=== PATIENT | male | born 1925 | race Caucasian/White ===

== ENCOUNTER 2016-06-14 17:23 | Inpatient (IN) | payer OTHER ==
[2016-06-14] MEDS ORDERED: IPRATROPIUM/ALBUTEROL 3 ML DEYVIAL IH ONE (17:39)
--- NOTE | 2016-06-14 17:39 | EDPHY ---
H & P HPI/ROS: CHIEF COMPLAINT: Altered mental status Limitations: Unable to obtain any history from the patient; the history is through the paramedics and the patient's son HISTORY OF PRESENT ILLNESS: 89-year-old male with a history of hypertension and chronic respiratory failure presents with altered mental status. Onset of low-grade fever few days ago. Today he was more confused than usual at his prison and he was requiring more oxygen than usual. Unable to ambulate. Per the patient's son, he frequently has pneumonia and this is typical of his prior episodes of pneumonia. The patient denies any complaints; no pain, shortness of breath or cough. REVIEW OF SYSTEMS: Unable to determine Past Medical/Surgical History: Hypertension Congestive heart failure Chronic respiratory failure, on home oxygen Chronic renal failure Social History: Lives at [facility] Smoking Status: Unknown if ever smoked Physical Exam: General Appearance: Drowsy, opens eyes to voice Eyes: Pupils equal and round, no conjunctival pallor or injection ENT, Mouth: Mucous membranes dry Neck: Normal inspection Respiratory: diffuse rhonchi and wheezing Cardiovascular: Regular rate and rhythm Gastrointestinal: Abdomen is soft, no apparent tenderness Neurological: drowsy, moves all extremities, answers questions Skin: Warm and dry Extremities: normal inspection Psychiatric: flat affect Constitutional: Initial Vital Signs Temperature (C) 37 C 06/14/16 17:25 Heart Rate 82 06/14/16 17:25 Respiratory Rate 20 06/14/16 17:25 Blood Pressure 138/73 H 06/14/16 17:25 O2 Sat (%) 88 L 06/14/16 17:25 O2 Delivery Mode Oxymizer O2 (L/minute) 10 Allergies/Adverse Reactions: No Known Allergies Allergy (Unverified 07/10/14 08:12) Home Medications: Medication Instructions Recorded oxyCODONE IR [Oxycodone Ir (*)] 5 mg PO Q6HRS PRN 07/10/14 Acetaminophen [Tylenol 325mg (*)] 325 - 650 mg PO Q6 PRN #0 tab 07/19/14 Calcium Carbonate [Tums 500MG (*)] 500 mg PO QID PRN 01/20/15 Folic Acid [Folic Acid 1 MG (*)] 800 mcg PO DAILY 01/20/15 Polyethylene Glycol 3350 [Miralax 17 gm PO DAILY 01/20/15 17 gm (*)] Sennosides/Docusate Sodium 1 each PO BID PRN 01/20/15 [Senokot-S] Acetaminophen [Tylenol Supp 325mg 650 mg AK Q6HRS PRN 06/14/16 (*)] Clobetasol 0.05% [Temovate Cream] 1 harshal TP MWF PRN 06/14/16 Furosemide [Lasix 20 MG (*)] 20 mg PO DAILY 06/14/16 Herbals/Supplements -Info Only 1 ea PO DAILY 06/14/16 Losartan Potassium [Cozaar 50 mg 50 mg PO DAILY 06/14/16 (*)] Methyl Salicylate/Menthol [Bengay 1 harshal TP Q6HRS PRN 06/14/16 (*)] Ondansetron Odt [Zofran Odt 4 mg 8 mg PO Q8HRS PRN 06/14/16 (*)] Tamsulosin HCl [Flomax 0.4 MG (*)] 0.4 mg PO DAILY 06/14/16 amLODIPine BESYLATE [Norvasc 5 mg 5 mg PO DAILY 06/14/16 (*)] guaiFENesin [Mucinex 600 MG (*)] 600 mg PO BID 06/14/16 Medical Decision Making - Diagnostics EKG Interpretation: EKG interpreted by me reveals NSR, QRS interval 0.10, LAFB. Imaging: Chest x-ray independently reviewed by me reveals left lower lobe infiltrate, poor inspiration. Procedures: Procedure: Central line placement. Indication: poor vascular access, hyperkalemia. Risks, benefits, alternatives discussed with the patient including but not limited to bleeding, infection, vascular injury, and collapsed lung and consent obtained. A timeout was observed. Full maximal sterile barrier technique was used. The area was anesthetized with 1% lidocaine. A 7 Icelandic triple lumen was placed in the right internal jugular vein using standard Seldinger technique. There were no complications. Blood return low pressure, dark blood. Patient tolerated procedure well. CXR results: Appropriate line placement, and no pneumothorax. X-ray was interpreted by myself. Radiologist interpretation is pending. The procedure was performed by myself. ED Course/Re-evaluation: This patient presents with altered mental status and a history of fever. On arrival, he is hypoxic, but other vital signs are normal. History is extremely limited; pt's son briefly in ED, stated that pt has h/o pneumonia. Pt does not meet SIRS criteria. He has a very difficult IV access and multiple attempts were made. Ultimately I used ultrasound guidance to place a left upper extremity 18ga IV. A DuoNeb was given because of wheezing and rhonchi. Chest x -ray revealed a left lower lobe infiltrate. Initial serum lactate is 1.2. Blood cultures were drawn and Levaquin 750 mg IV given for pneumonia. Initial potassium is 6.8, though I suspect that this is hemolyzed, given difficult blood draw initially. A repeat potassium has been ordered. The patient was given standard treatment for hyperkalemia. After this, he pulled out 1 of his 2 peripheral IVs. Given the difficult IV access and repeated loss of peripheral IVs, I decided to place a right internal jugular central line. Patient tolerated the procedure well. Repeat potassium 6.7; pt given standard treatment for hyperkalemia, including calcium, IVF/Lasix, glucose/insulin, bicarb, kayexalate. EKG without changes of acute hyperkalemia. The hospitalist service was consulted for admission and consulted Nephrology. This patient utilized 40 minutes of critical care time exclusive of unbundled procedures. Differential Diagnosis: Altered mental status including but not limited to hypoglycemia, infectious process, electrolyte abnormality, head injury and intoxicants. - Data Points Laboratory Results: Laboratory Results 06/14/16 18:46 06/14/16 18:46 Microbiology Results: MICROBIOLOGY 06/14/16 18:46 Blood Blood Culture - Preliminary 06/14/16 18:21 Sputum, Expectorated - Final 06/14/16 18:21 Sputum, Expectorated Sputum Culture - Preliminary Medications Given: Discontinued Medications Albuterol (Proventil Neb) 3 ml IH ONCE ONE Stop: 06/14/16 20:07 Last Admin: 06/14/16 20:17 Dose: 3 ml Albuterol/Ipratropium (Duoneb) 3 ml IH EDNOW ONE Stop: 06/14/16 17:40 Last Admin: 06/14/16 17:55 Dose: 3 ml Albuterol/Ipratropium (Duoneb) 3 ml IH Q4H ELSA Stop: 12/11/16 20:29 Last Admin: 06/15/16 09:00 Dose: Not Given Calcium Gluconate (Calcium Gluconate) 1 gm IVP EDNOW ONE Stop: 06/14/16 21:29 Last Admin: 06/14/16 22:33 Dose: 1 gm Dextrose (Dextrose 50% Syringe) 25 gm IVP EDNOW ONE Stop: 06/14/16 21:29 Last Admin: 06/14/16 23:21 Dose: 25 gm Dextrose (Dextrose 50% Syringe) 25 gm IVP ONCE ONE Stop: 06/15/16 05:00 Last Admin: 06/15/16 05:07 Dose: 25 gm Furosemide (Lasix Injection) 20 mg IVP EDNOW ONE Stop: 06/15/16 21:29 Last Admin: 06/15/16 17:33 Dose: Not Given Furosemide (Lasix Injection) 20 mg IVP ONCE ONE Stop: 06/15/16 04:59 Last Admin: 06/15/16 05:07 Dose: 20 mg Levofloxacin/Dextrose (Levaquin 750 Mg (Premix)) 150 mls @ 100 mls/hr IV EDNOW ONE PRN Reason: Protocol Stop: 06/14/16 19:32 Last Admin: 06/14/16 20:50 Dose: 150 mls Sodium Chloride (Ns) 1,000 mls @ 0 mls/hr IV ONCE ONE PRN Reason: Wide Open Stop: 06/14/16 18:52 Last Admin: 06/14/16 18:51 Dose: 1,000 mls Dextrose/Sodium Chloride (D5w 1/2 Ns) 1,000 mls @ 125 mls/hr IV CONT ELSA Stop: 12/11/16 20:59 Last Admin: 06/15/16 00:14 Dose: 1,000 mls Insulin Human Regular 10 unit/Miscellaneous Medication 1 ea / Dextrose 500.1 mls @ 50 mls/hr IV EDNOW ONE Stop: 06/15/16 07:28 Last Admin: 06/15/16 01:30 Dose: Not Given Sodium Chloride (Ns) 500 mls @ 0 mls/hr IV ONCE ONE PRN Reason: As Directed Stop: 06/14/16 21:29 Last Admin: 06/14/16 22:28 Dose: 500 mls Calcium Gluconate (Calcium Gluconate 1 Gm (Premix)) 50 mls @ 100 mls/hr IV ONCE ONE Stop: 06/15/16 05:27 Last Admin: 06/15/16 05:09 Dose: 50 mls Sodium Chloride (1/2 Ns) 1,000 mls @ 75 mls/hr IV CONT ELSA Stop: 12/12/16 05:29 Last Admin: 06/15/16 05:00 Dose: 1,000 mls Insulin Human Regular (Humulin R) 10 unit IVP EDNOW ONE Stop: 06/14/16 21:29 Last Admin: 06/14/16 23:21 Dose: 10 unit Insulin Human Regular (Humulin R) 10 unit IVP ONCE ONE Stop: 06/15/16 04:58 Last Admin: 06/15/16 05:07 Dose: 10 units Methylprednisolone Sodium Succinate (Solu-Medrol) 60 mg IVP BID ELSA Stop: 12/11/16 20:41 Last Admin: 06/14/16 22:18 Dose: Not Given Sodium Bicarbonate (Sodium Bicarbonate) 50 meq IVP ONCE ONE Stop: 06/14/16 21:36 Last Admin: 06/14/16 22:33 Dose: Not Given Sodium Bicarbonate (Sodium Bicarbonate) 50 meq IV ONCE ONE Stop: 06/14/16 22:31 Last Admin: 06/14/16 23:21 Dose: 50 meq Sodium Bicarbonate (Sodium Bicarbonate) 50 meq IV ONCE ONE Stop: 06/15/16 05:01 Last Admin: 06/15/16 04:45 Dose: 50 meq Sodium Polystyrene Sulfonate (Kayexalate) 30 gm PO ONCE ONE Stop: 06/14/16 21:29 Last Admin: 06/15/16 00:11 Dose: 30 gm Departure - Departure Disposition: [facility] Acute Clinical Impression: Influenza, [id number] renal failure, Acute hyperkalemia, Acute encephalopathy Pneumonia Qualifiers: Qualifier Code: (J18.1) Lobar pneumonia, unspecified organism Condition: Serious
--- NOTE | 2016-06-14 18:37 | DX ---
PA and Lateral Chest 17:27 pm Indication: Suspected infection. Patient meets sepsis criteria. Comparison: January 20, 2015 Findings: New patchy left basilar consolidation consolidation partially obscures the left hemidiaphra gm. Lungs have diffuse mild peribronchial thickening and minimal linear atelectasis right base. Borde rline cardiomegaly unchanged. No pneumothorax. No pleural effusion. Impression: 1. Left basilar pneumonia versus atelectasis. 2. Minimal cardiomegaly. No effusion or failure.
[2016-06-14] MEDS ORDERED: NS 1,000 ML IV ONE (18:51)
[2016-06-14 19:02] LABS: COLOR YELLOW; LEUKOCYTE ESTERASE,URINE NEGATIVE (NEGATIVE); NITRITE,URINE NEGATIVE (NEGATIVE)
[2016-06-14 19:23] LABS: BILIRUBIN,TOTAL 0.8 mg/dL (0.1-1.4); CALCIUM 7.9 mg/dL (8.5-10.4); CARBON DIOXIDE 23 mEq/l (22-31); CHLORIDE 110 mEq/L (97-110); CREATININE 3.5 mg/dL (0.7-1.3); GLOMERULAR FILTRATION RATE 17; GLUCOSE 103 mg/dL (70-100); SODIUM 145 mEq/L (134-144)
[2016-06-14 19:44] LABS: ANION GAP 12 mEq/L (8-16)
[2016-06-14 19:48] LABS: POTASSIUM 6.8 mEq/L (3.5-5.2)
[2016-06-14] MEDS ORDERED: ALBUTEROL 3 ML DEYVIAL IH ONE (20:06)
[2016-06-14 20:14] LABS: % IMMATURE GRANULYOCYTES 0.5 % (0.0-1.1); ABSOLUTE IMMATURE GRANULOCYTES 0.04 10^3/uL (0.00-0.10); ADD DIFF? NO; ADD MORPH? NO; ADD SCAN? NO; ATYPICAL LYMPHOCYTE FLAG 10 (0-99); FRAGMENT RBC FLAG 0 (0-99); HEMATOCRIT 53.1 % (40.0-51.0); HEMOGLOBIN 15.5 g/dL (13.7-17.5); LEFT SHIFT FLG 0 (0-99); LIPEMIA HEMOLYSIS FLAG 70 (0-99); MEAN CELL HEMOGLOBIN 30.2 pg (27.9-34.1); MEAN CELL HEMOGLOBIN CONCENTR. 29.2 g/dL (32.4-36.7); MEAN CELL VOLUME 103.5 fL (81.5-99.8); MEAN PLATELET VOLUME 9.2 fL (8.7-11.7); PLATELET CLUMPS FLAG 40 (0-99); PLATELET COUNT 94 10^3/uL (150-400); RED BLOOD CELL COUNT 5.13 10^6/uL (4.40-6.38); RED CELL DISTRIBUTION WIDTH 14.3 % (11.5-15.2)
[2016-06-14 20:24] LABS: INR 2.05 (0.83-1.16); PROTIME(PATIENT) 23.3 SEC (12.0-15.0)
[2016-06-14] MEDS ORDERED: ALTEPLASE 2 MG VIAL IVP PRN (20:24)
[2016-06-14 20:27] LABS: APTT 77.9 SEC (23.0-38.0)
[2016-06-14] MEDS ORDERED: ACETAMINOPHEN 650 MG SUPP PR PRN (20:30)
[2016-06-14] MEDS ORDERED: ONDANSETRON 4 MG/2 ML VIAL IVP PRN (20:30)
[2016-06-14] MEDS ORDERED: ALBUTEROL 3 ML DEYVIAL IH PRN (20:30)
[2016-06-14] MEDS: IPRATROPIUM/ALBUTEROL 3 ML DEYVIAL IH SCH (20:49)
[2016-06-14] MEDS ORDERED: methylPREDNISolone SOD SUCC 125 MG/2 ML VIAL ONE ×2 (20:51→22:14)
[2016-06-14] MEDS ORDERED: D5W 1/2 NS 1,000 ML IV SCH (21:00)
[2016-06-14 21:20] LABS: ALANINE AMINOTRANSFERASE 34 IU/L (21-72); ALBUMIN 3.4 g/dL (3.5-5.0); ALKALINE PHOSPHATASE 78 IU/L (38-126); ANION GAP 14 mEq/L (8-16); ASPARTATE AMINOTRANSFERASE 23 IU/L (17-59); BILIRUBIN,TOTAL 0.8 mg/dL (0.1-1.4); BILIRUBIN-CONJUGATED 0.5 mg/dL (0.0-0.5); BILIRUBIN-UNCONJUGATED 0.3 mg/dL (0.0-1.1); CALCIUM 7.8 mg/dL (8.5-10.4); CARBON DIOXIDE 24 mEq/l (22-31); CHLORIDE 109 mEq/L (97-110); CREATININE 3.5 mg/dL (0.7-1.3); GLOMERULAR FILTRATION RATE 17; GLUCOSE 102 mg/dL (70-100); SODIUM 147 mEq/L (134-144); TOTAL PROTEIN 6.8 g/dL (6.3-8.2)
[2016-06-14 21:26] LABS: POTASSIUM 6.7 mEq/L (3.5-5.2)
[2016-06-14] MEDS ORDERED: SODIUM POLY SULF 15 GM/60 ML BOTTLE PO ONE (21:28)
[2016-06-14] MEDS ORDERED: NS 500 ML IV ONE (21:28)
[2016-06-14] MEDS ORDERED: CALCIUM GLUC 10% 1 GM/10 ML VIAL IVP ONE (21:28)
[2016-06-14] MEDS ORDERED: D50W 25 GM/50 ML SYR IVP ONE (21:28)
[2016-06-14] MEDS ORDERED: INSULIN REGULAR HUMAN 10 UNIT, COSIGN. REQUIRED 1 EA in D10W 500 ML IV ONE (21:28)
[2016-06-14] MEDS ORDERED: INSULIN REGULAR HUMAN 100 UNIT/ML IVP ONE (21:28)
[2016-06-14] MEDS ORDERED: SODIUM BICARBONATE 50 MEQ/50 ML SYR IVP ONE (21:35)
--- NOTE | 2016-06-14 22:05 | CPEKG ---
Heart Rate: 89 RR Interval: 674 P-R Interval: 184 QRSD Interval: 100 QT Interval: 376 QTC Interval: 458 P Fairmont: 44 QRS Fairmont: -45 T Wave Fairmont: 53 EKG Severity - ABNORMAL ECG - EKG Impression: SINUS RHYTHM EKG Impression: LEFT ANTERIOR FASCICULAR BLOCK Electronically Signed By: Chel Staley 14-Jun-2016 22:31:30
--- NOTE | 2016-06-14 22:09 | GHP ---
[f rep st] HISTORY AND PHYSICAL DATE OF ADMISSION: 06/14/2016 CHIEF COMPLAINT: Altered mental status. HISTORY OF PRESENT ILLNESS: The patient is an 89-year-old male with a history of chronic hypoxemic respiratory failure, diastolic heart failure and chronic kidney disease who presents to the emergency department from his long term facility with altered mental status. History is difficult to obtain as the patient is a poor historian and his son is no longer at the bedside. I attempted to telephone the son and left a message requesting he call me back. History is obtained from the chart and the emergency department physician. Apparently the patient developed low-grade fever several days ago. He was found more confused today and appeared more short of breath along with increased coughing. He was brought to the emergency department for further evaluation. Work up in the emergency department consistent with a likely pneumonia. He is admitted to the hospital for further management. PAST MEDICAL HISTORY: 1. Chronic diastolic heart failure. 2. Chronic hypoxemic respiratory failure, on home oxygen. 3. Hypertension. 4. History of alcohol abuse. 5. Osteoarthritis. 6. Spinal stenosis. 7. Chronic kidney disease with a baseline creatinine of 2 to 3. 8. Benign prostatic hypertrophy. 9. History of pneumonia requiring hospitalization in July 2014. PAST SURGICAL HISTORY: Prostate surgery. of pneumonia requiring hospitalization in July 2014. Dr. Campa was. MEDICATIONS: Please see [facility] for complete updated outpatient medication list number. ALLERGIES: No known drug allergies. SOCIAL HISTORY: The patient is a former smoker. He currently lives at [facility]. FAMILY HISTORY: Unobtainable. REVIEW OF SYSTEMS: A 10-point review of systems was performed and the patient is an unreliable historian but pertinent positives are reported in HPI. OBJECTIVE: VITAL SIGNS: Temperature is 36.7, blood pressure 128/76, heart rate 83, respiratory rate 20 to 24. He is currently saturating 92% on 10 L oxy mask. GENERAL: The patient is awake, alert, oriented to person only. HEENT exam: Head is atraumatic, normocephalic. Pupils are equal, round, and reactive to light. Sclerae are mildly injected. Oropharynx is very dry with crusting around his mouth. NECK: Supple. There is no detectable JVD. HEART: Regular rate and rhythm. LUNGS: Decreased air exchange with bibasilar crackles and diffuse expiratory wheezes bilaterally. ABDOMEN: Soft, obese, nondistended, nontender. Normoactive bowel sounds. EXTREMITIES: Trace to 1+ bilateral lower extremity edema with evidence of venous stasis changes. His extremities are otherwise warm and well perfused. NEUROLOGIC: Grossly nonfocal. LABORATORY DATA: CBC reveals white blood cell count of 7.6, elevated hematocrit of 53.1, platelet count of 94. INR is elevated at 2.05. D-dimer is pending. Lactic acid 1.2. Basic metabolic panel is remarkable for sodium of 145, potassium 6.8, repeat potassium is pending. Some suspicion this specimen was hemolyzed. BUN 49, creatinine 3.5, which is up from previous creatinine of 3.0 in January 2015. Urinalysis is entirely negative. Influenza swab is pending. Chest x-ray in the emergency department shows a left basilar pneumonia versus atelectasis with minimal cardiomegaly. No evidence of effusion or failure. This was personally reviewed by myself. EKG is ordered and is pending. ASSESSMENT AND PLAN: The patient is an 89-year-old male with a history of chronic hypoxemic respiratory failure who presents to the emergency department with altered mental status and worsening hypoxemia. 1. Acute on chronic hypoxemic respiratory failure. Suspect multifactorial- likely PE given confirmed DVT. CXR suggestive of LLL PNA and pt also positive for influenza. Has quite a bit of wheezing. He does not meet sepsis criteria ( afebrile, nl wbc's, nl lactate), but elevated INR and low platelets may be suggestive of sepsis. No hypotension. BCx's, sputum Cx pending. -S/P 1.5 L NS bolus, caution with IVF's given h/o diastolic HF -Cover with Zosyn for HCAP given SNF living status, also will cover anaerobes in the event he aspirated -Speech / swallow eval -Tamiflu, renally dosed -IV solumedrol for wheezing, nebs -Heparin drip for DVT / suspected PE -Check echo to eval for RV strain 2. B/L DVT - R>L, fairly extensive clot. Might need to consider an IVC filter. Though his INR is elevated, he may be hypercoagulable if in the setting of liver disease so will treat. -Heparin drip, no bolus given elevated PTT and INR 3. Hyperkalemia. Initial potassium was 6.8, repeat 6.7. Serum CO2 is normal, but pH 7.25. He is given an amp of sodium bicarb, calcium gluconate, insulin/ dextrose and kayexalate. Will recheck K in 1 hr. 4. Acute kidney injury with history of chronic kidney disease. He seems to have a new baseline creatinine near 3 and he presents with a creatinine of 3.5. -check renal ultrasound -check urine studies to calculate a FENa for further analysis. -IVF's tonight -Nephrology consulted and will see in AM 5. Elevated INR. The etiology of this is unclear. No anti-coagulants on board. Query sepsis response vs alcoholic liver disease (+h/o alcohol abuse). Transaminases normal. -Check abdominal u/s 6. Polycythemia. I query if he is hemoconcentrated. His hematocrit is mildly elevated at 53. Will recheck this in the morning when his volume status improves. 7. Thrombocytopenia. This is also new and again could be a reflection of sepsis vs BM suppression from etoh. We will continue to follow closely while on heparin. 8. Hypernatremia - Received 1.5 L NS in ED, will give 1/2 NS maintenance, follow. 9. Code status. I reviewed his paperwork from [facility]. He is full code. I attempted to reach his son, Chris, to discuss this but was unable to reach him. 10. Disposition. Patient admitted to inpatient status as he will likely require greater than 48 hours hospitalization for ongoing management of his acute hypoxemic respiratory failure and other comorbidities. /[id number]/MODL MTDD
[2016-06-14] MEDS: methylPREDNISolone SOD SUCC 125 MG/2 ML VIAL IVP SCH ×2 (22:17→22:18)
[2016-06-14 22:19] LABS: BASE EXCESS -6.3 mEq/L (-2.5-2.5); BICARBONATE 21 mEq/L (22-26); MEASURED OXYGEN SATURATION 96 % (92-95); PCO2 49 mmHg (34-38); PO2 96 mmHg (65-75); TCO2 22 mEq/L (23-27)
[2016-06-14] MEDS ORDERED: NA BICARBONATE 50 MEQ/50 ML VIAL IV ONE (22:30)
[2016-06-14] MEDS ORDERED: HEPARIN 10,000 UNIT/10 ML MDV IVP PRN (22:45)
[2016-06-14] MEDS ORDERED: HEPARIN 10,000 UNIT/10 ML MDV IVP ONE (22:45)
--- NOTE | 2016-06-14 22:50 | US ---
Ultrasound and Venous Duplex Doppler Study of Both the Right and Left Lower Extremities History: Dyspnea, leg swelling, elevated d-dimer Technique: High frequency transducer was used for imaging and Doppler study of the veins of the righ t and left lower extremities. Pulsed Doppler and color Doppler were utilized, along with various ma neuvers to assess flow in the veins. Findings: Right: The deep veins of the right lower extremity are diffusely thrombosed between the groin and the calf. The profunda femoral vein remains patent. They have do not normal Doppler waveforms within the m. No superficial venous thrombosis is identified. Left: There is a small segment of deep vein thrombosis in the mid femoral vein in the thigh. The popl iteal vein is thrombosed. The posterior tibial vein is probably thrombosed. They have do not normal D oppler wave forms within them. Impression: Bilateral deep vein thrombosis, right greater than left. Results discussed with Ashley Pandey at 1040 p.m. A test result has been communicated to a licensed care provider and documented in the [facility] Critical Result system on 06/14/2016 22:48, Message ID [id number].
--- NOTE | 2016-06-14 22:53 | US ---
Renal Sonogram Clinical Indications: Elevated creatinine Findings: Right renal cortical echogenicity is normal. The left kidney is atrophic and somewhat diffi cult to visualize due to the patient's size. The right kidney measures 10.6 cm and the left kidney me asures 8.6 cm in length. There is no hydronephrosis or perinephric fluid. There is a Carey catheter i n the urinary bladder which is decompressed. Impression: No renal obstruction. Small left kidney.. Results discussed with Ashley Pandey M.D.
--- NOTE | 2016-06-14 23:24 | DX ---
Portable Chest, 2310 History: Check central venous line position Comparison: June 14, 2016 Findings: A right jugular venous catheter is present with tip overlying the right atrium. There is no pneumothorax. The heart is large. The pulmonary vascularity is not plethoric. Consolidation of the l eft costophrenic gutter may represent atelectasis and/or small pleural effusion. Impression: Good position of the central line without pneumothorax.
[2016-06-15] MEDS: OSELTAMIVIR 6 MG/ML UDSYR PO SCH ×2 (00:10→08:50)
[2016-06-15] MEDS: HEPARIN/DEXTROSE 500 ML IV SCH ×2 (00:16→12:35)
[2016-06-15] MEDS: PIPERACILLIN/TAZO 2.25 GM/DEX 50 ML IV SCH ×4 (00:33→17:28)
[2016-06-15 00:50] LABS: ANION GAP 12 mEq/L (8-16); CALCIUM 7.7 mg/dL (8.5-10.4); CARBON DIOXIDE 26 mEq/l (22-31); CHLORIDE 112 mEq/L (97-110); CREATININE 3.1 mg/dL (0.7-1.3); GLOMERULAR FILTRATION RATE 19; GLUCOSE 123 mg/dL (70-100); POTASSIUM 5.6 mEq/L (3.5-5.2); SODIUM 150 mEq/L (134-144)
[2016-06-15 00:57] LABS: % IMMATURE GRANULYOCYTES 0.5 % (0.0-1.1); ABSOLUTE IMMATURE GRANULOCYTES 0.03 10^3/uL (0.00-0.10); ADD DIFF? NO; ADD MORPH? NO; ADD SCAN? NO; ATYPICAL LYMPHOCYTE FLAG 0 (0-99); FRAGMENT RBC FLAG 0 (0-99); HEMATOCRIT 46.2 % (40.0-51.0); HEMOGLOBIN 14.1 g/dL (13.7-17.5); LEFT SHIFT FLG 0 (0-99); LIPEMIA HEMOLYSIS FLAG 80 (0-99); MEAN CELL HEMOGLOBIN 30.1 pg (27.9-34.1); MEAN CELL HEMOGLOBIN CONCENTR. 30.5 g/dL (32.4-36.7); MEAN CELL VOLUME 98.7 fL (81.5-99.8); MEAN PLATELET VOLUME 8.9 fL (8.7-11.7); PLATELET CLUMPS FLAG 0 (0-99); PLATELET COUNT 154 10^3/uL (150-400); RED BLOOD CELL COUNT 4.68 10^6/uL (4.40-6.38); RED CELL DISTRIBUTION WIDTH 14.3 % (11.5-15.2)
[2016-06-15 01:07] LABS: INR 1.22 (0.83-1.16); PROTIME(PATIENT) 15.4 SEC (12.0-15.0)
[2016-06-15 01:08] LABS: APTT 35.4 SEC (23.0-38.0)
[2016-06-15] MEDS: IPRATROPIUM/ALBUTEROL 3 ML DEYVIAL IH SCH ×6 (01:11→20:38)
[2016-06-15 04:18] LABS: BASE EXCESS -5.5 mEq/L (-2.5-2.5); BICARBONATE 24 mEq/L (22-26); MEASURED OXYGEN SATURATION 97 % (92-95); PCO2 68 mmHg (34-38); PO2 136 mmHg (65-75); TCO2 26 mEq/L (23-27)
[2016-06-15 04:23] LABS: BIPAP YES
[2016-06-15 04:24] LABS: EXP PRESSURE 5; INSP PRESSURE 12; O2 CONCENTRATIION 50 % (0-100); P/F RATIO 272 RATIO
[2016-06-15 04:28] LABS: INR 1.22 (0.83-1.16); PROTIME(PATIENT) 15.4 SEC (12.0-15.0)
[2016-06-15 04:29] LABS: ALANINE AMINOTRANSFERASE 37 IU/L (21-72); ALBUMIN 3.6 g/dL (3.5-5.0); ALKALINE PHOSPHATASE 72 IU/L (38-126); ANION GAP 13 mEq/L (8-16); ASPARTATE AMINOTRANSFERASE 22 IU/L (17-59); BILIRUBIN,TOTAL 0.5 mg/dL (0.1-1.4); CALCIUM 7.5 mg/dL (8.5-10.4); CARBON DIOXIDE 27 mEq/l (22-31); CHLORIDE 110 mEq/L (97-110); CREATININE 3.3 mg/dL (0.7-1.3); GLOMERULAR FILTRATION RATE 18; GLUCOSE 200 mg/dL (70-100); MAGNESIUM 2.1 mg/dL (1.6-2.3); POTASSIUM 6.2 mEq/L (3.5-5.2); SODIUM 150 mEq/L (134-144); TOTAL PROTEIN 6.6 g/dL (6.3-8.2)
[2016-06-15] MEDS ORDERED: SODIUM BICARBONATE 50 MEQ/50 ML SYR IVP ONE (04:29)
[2016-06-15] MEDS ORDERED: SODIUM BICARBONATE 50 MEQ/50 ML SYR ONE (04:31)
[2016-06-15 04:33] LABS: % IMMATURE GRANULYOCYTES 0.7 % (0.0-1.1); ABSOLUTE IMMATURE GRANULOCYTES 0.04 10^3/uL (0.00-0.10); ADD DIFF? NO; ADD MORPH? NO; ADD SCAN? NO; ATYPICAL LYMPHOCYTE FLAG 0 (0-99); FRAGMENT RBC FLAG 0 (0-99); HEMATOCRIT 47.3 % (40.0-51.0); LEFT SHIFT FLG 0 (0-99); LIPEMIA HEMOLYSIS FLAG 70 (0-99); MEAN CELL HEMOGLOBIN 28.9 pg (27.9-34.1); MEAN CELL HEMOGLOBIN CONCENTR. 29.6 g/dL (32.4-36.7); MEAN CELL VOLUME 97.7 fL (81.5-99.8); MEAN PLATELET VOLUME 9.3 fL (8.7-11.7); PLATELET CLUMPS FLAG 0 (0-99); PLATELET COUNT 158 10^3/uL (150-400); RED BLOOD CELL COUNT 4.84 10^6/uL (4.40-6.38); RED CELL DISTRIBUTION WIDTH 14.3 % (11.5-15.2)
[2016-06-15] MEDS ORDERED: INSULIN REGULAR HUMAN 100 UNIT/ML IVP ONE (04:57)
[2016-06-15] MEDS ORDERED: FUROSEMIDE 20 MG/2 ML VIAL IVP ONE ×2 (04:58→21:28)
[2016-06-15] MEDS ORDERED: CALCIUM GLUCONATE 50 ML IV ONE (04:58)
[2016-06-15] MEDS ORDERED: D50W 25 GM/50 ML SYR IVP ONE ×2 (04:59→05:04)
[2016-06-15] MEDS ORDERED: NA BICARBONATE 50 MEQ/50 ML VIAL IV ONE (05:00)
[2016-06-15] MEDS ORDERED: INSULIN REGULAR HUMAN 100 UNIT/ML ONE (05:04)
[2016-06-15] MEDS ORDERED: 1/2 NS 1,000 ML IV SCH (05:30)
[2016-06-15 05:37] LABS: BASE EXCESS -3.1 mEq/L (-2.5-2.5); BICARBONATE 24 mEq/L (22-26); MEASURED OXYGEN SATURATION 93 % (92-95); PCO2 56 mmHg (34-38); PO2 77 mmHg (65-75); TCO2 26 mEq/L (23-27)
[2016-06-15 05:38] LABS: BIPAP YES; EXP PRESSURE 5; INSP PRESSURE 20; O2 CONCENTRATIION 50 % (0-100); P/F RATIO 154 RATIO
[2016-06-15 06:48] LABS: POTASSIUM 5.3 mEq/L (3.5-5.2)
--- NOTE | 2016-06-15 08:37 | US ---
Complete Abdominal Sonogram Indications: Suspected infection; meets sepsis criteria. Requires evaluation of liver and spleen, giulia als have already been assessed earlier. Technique: Longitudinal and transverse transabdominal images are obtained. Color Doppler evaluation i s employed for assessment of vascularity. Examination is somewhat compromised by overlying bowel gas. Findings: The liver is normal size measuring 15.8 cm in the midaxillary line. The liver has normal ec hogenicity and echotexture. No sonographic mass or biliary dilation is identified. The gallbladder i s contracted. Several small gall stones are seen with no findings to suggest acute cholecystitis.. Co mmon bile duct is normal caliber and measures 3 mm in diameter. The kidneys are unremarkable with no hydronephrosis. The right kidney measures 10.6 cm in cephalocaud al height and the left kidney measures 8.6 cm. Cortical thickness is estimated at 1.2 cm on the right and at 1.0 cm on the left. No free fluid is seen. The pancreas is partially obscured by overlying bowel gas, there is possible increased pancreatic echogenicity which may reflect fatty infiltration.. The spleen is normal size me asuring 10.3 x 10.8 x 3.4 cm. No focal splenic abnormality is seen. The abdominal aorta is normal hipolito iber and tapers normally. Impression: 1. Examination negative for acute abnormality. The liver and spleen are normal. 2. See above report for additional findings. A preliminary report was called to the patient's nurse in the ICU at 0 115 hours.
[2016-06-15] MEDS: methylPREDNISolone SOD SUCC 125 MG/2 ML VIAL IVP SCH (08:50)
--- NOTE | 2016-06-15 09:32 | ECHO ---
[id number] + + [address] : : [place] [address] : : [phone] + + Adult Echocardiographic Report + --+ :Name: BECKA SUAREZ WStudy Date: 06/15/2016 12:32 AM : : Hospital Admission Number: [id number] : :: 1925 Gender: Male Height: 70 in : :Age: 89 yrs Race: WH Weight: 200 lb : :Reason For Study: eval rv fx : : BSA: 2.1 meter s2: :History: hypoxemia, dvt : + --+ MMode/2D Measurements & Calculations IVSd: 1.4 cm LVIDd: 4.8 cm FS: 39.1 % Ao root diam: 3.1 cm LVPWd: 1.1 cm LVIDs: 2.9 cm EDV(Teich): 108.8 ml ESV(Teich): 33.2 ml EF(Teich): 69.5 % Normal Measurement Values: + + :LVIDd (3.5-5.7cm) IVSd (0.6-1.1cm) LVPWd (0.6-1.1cm) Aortic Root (2.0-3.7cm)Left Atrium (1.5-4.0cm): :LV Vol(d) (76-115ml) LV Vol(s) (29-48ml) Ejec Fraction (50-65%)PV Faisal (0.6- 1.2m/s) TV Faisal (0.4-1.0m/s) : :MV E Faisal (0.8-1.0m/s)MV A Faisal (0.3-1.0m/s)LVOT Faisal (0.7-1.2m/s) Asc Ao Faisal ( 0.9-1.8m/s) : + + Doppler Measurements & Calculations MV E max faisal: Ao V2 max: LV V1 max: PA V2 max: 77.0 cm/sec 178.0 cm/sec 72.6 cm/sec 65.2 cm/sec MV A max faisal: Ao max PG: LV V1 max PG: PA max P.9 cm/sec 12.7 mmHg 2.1 mmHg 1.7 mmHg MV E/A: 1.7 MV dec time: 0.20 sec TR max faisal: 331.8 cm/sec TR max P.0 mmHg RAP systole: 5.0 mmHg RVSP(TR): 49.0 mmHg Left Ventricle The left ventricle is normal in size and function. There is borderline concentric left ventricular hypertrophy. There is Doppler evidence for diastolic dysfunction. Ejection Fraction = 69%. No regional wall motion abnormalities noted. Right Ventricle The right ventricle is normal in size and function. Atria The left atrium is borderline dilated. The right atrium is borderline dilated. There is a catheter/pacemaker lead seen in the right atrium. Mitral Valve The mitral valve is normal in structure and function. There is no mitral valve stenosis. There is mild to moderate mitral regurgitation. Tricuspid Valve The tricuspid valve is normal in structure and function. There is mild to moderate tricuspid regurgitation. Right ventricular systolic pressure is 49mmHg. There is Doppler evidence for moderate pulmonary hypertension. Aortic Valve The aortic valve is trileaflet. There is no aortic stenosis. Mild aortic regurgitation. Pulmonic Valve The pulmonic valve is normal in structure and function. Mild to moderate pulmonic valvular regurgitation. Great Vessels The aortic root is not well visualized. Pericardium/Pleural Fat pad versus pericardial effusion. Conclusion A two-dimensional transthoracic echocardiogram with M-mode and Doppler was performed. The left ventricle is normal in size and function. There is borderline concentric left ventricular hypertrophy. There is Doppler evidence for diastolic dysfunction. Ejection Fraction = 69%. The left atrium is borderline dilated. The right atrium is borderline dilated. There is mild to moderate mitral regurgitation. There is mild to moderate tricuspid regurgitation. Right ventricular systolic pressure is 49mmHg. There is Doppler evidence for moderate pulmonary hypertension. Mild aortic regurgitation. Mild to moderate pulmonic valvular regurgitation. The aortic root is not well visualized. Final Reading Physician: Yahaira Vu signed on 06/15/2016 09:31 AM Ordering Physician: Ashley Pandey Performed By: Cassy Ashton
--- NOTE | 2016-06-15 10:39 | PDGENHP ---
History and Physical - Chief Complaint CKD, hyperkalemia - History of Present Illness Mr. Mchugh is an 89 yo M with chronic respiratory failure, CKD, and diastolic heart failure who was admitted yesterday from SNF with altered mental status. Pt was last hospitalized herein 2014 and had pneumonia and DOUG then, Cr on f/u in clinic was down to 3.0. He no-showed to clinic appointment with us in 2015 but did get labs done showing Cr of 3.3. A few days ago he had a low grade fever and started to have worsening mental status, markedly down yesterday and also with some dyspnea and cough. He was noted in ER to have K of 6.8, Cr of 3.5, CXR with possibly pneumonia and bilateral DVTs concerning for possible PE. Pt started on abx and heparin ggt, remains stable. Pt was given calcium, insulin/D50, amp of sodium bicarbonate, kayexalate overnight and a dose of Lasix this am and K improved to 5.3 this am. Noted that he was also given a 1L NS bolus, Na went up from 143 to 145 and now is 150 this am. He was on BiPAP overnight and now is back on NC, was awake and talking earlier this morning but now again somnolent. History Information - Allergies/Home Medication List Allergies/Adverse Reactions: No Known Allergies Allergy (Unverified 07/10/14 08:12) Home Medications: oxyCODONE IR [Oxycodone Ir (*)] 5 mg PO Q6HRS PRN 07/10/14 [Last Taken 01/20/15 08:00] Calcium Carbonate [Tums 500MG (*)] 500 mg PO QID PRN 01/20/15 [Last Taken Unknown] Folic Acid [Folic Acid 1 MG (*)] 800 mcg PO DAILY 01/20/15 [Last Taken 01/20/15] Polyethylene Glycol 3350 [Miralax 17 gm (*)] 17 gm PO DAILY 01/20/15 [Last Taken 01/20/15] Sennosides/Docusate Sodium [Senokot-S] 1 each PO BID PRN 01/20/15 [Last Taken Unknown] Acetaminophen [Tylenol Supp 325mg (*)] 650 mg DC Q6HRS PRN 06/14/16 [Last Taken Unknown] Clobetasol 0.05% [Temovate Cream] 1 harshal TP MWF PRN 06/14/16 [Last Taken Unknown] Furosemide [Lasix 20 MG (*)] 20 mg PO DAILY 06/14/16 [Last Taken Unknown] Herbals/Supplements -Info Only 1 ea PO DAILY 06/14/16 [Last Taken Unknown] Losartan Potassium [Cozaar 50 mg (*)] 50 mg PO DAILY 06/14/16 [Last Taken Unknown] Methyl Salicylate/Menthol [Bengay (*)] 1 harshal TP Q6HRS PRN 06/14/16 [Last Taken Unknown] Ondansetron Odt [Zofran Odt 4 mg (*)] 8 mg PO Q8HRS PRN 06/14/16 [Last Taken Unknown] Tamsulosin HCl [Flomax 0.4 MG (*)] 0.4 mg PO DAILY 06/14/16 [Last Taken Unknown] amLODIPine BESYLATE [Norvasc 5 mg (*)] 5 mg PO DAILY 06/14/16 [Last Taken Unknown] guaiFENesin [Mucinex 600 MG (*)] 600 mg PO BID 06/14/16 [Last Taken Unknown] I have personally reviewed and updated: medical history Past Medical History: Chronic diastolic heart failure. Chronic hypoxemic respiratoyr failure. Hypertension. h/o alcohol abuse. OA. Spinal stenosis. CKD - baseline Cr 3-3.3. BPH - Surgical History Additional surgical history: prostate surgery - Family History Additional family history: unobtainable 2/2 clinical condition - Social History Smoking Status: Unknown if ever smoked Additional social history: Lives in [facility] Review of Systems Review of Systems: Unable to obtain 2/2 clinical condition Physical Exam Temp Pulse Resp BP Pulse Ox 36.7 C 67 14 111/61 93 06/15/16 08:00 06/15/16 10:00 06/15/16 10:00 06/15/16 10:00 06/15/16 10:00 O2 (L/minute) 4 FIO2 (%) 50 Constitutional: no apparent distress, not in pain, obese Eyes: PERRL, anicteric sclera Ears, Nose, Mouth, Throat: dry mucous membranes Cardiovascular: regular rate and rhythym, pulses symmetric bilaterally, No edema Respiratory: no respiratory distress, rhonchi Gastrointestinal: normoactive bowel sounds, soft, non-tender abdomen Genitourinary: burton in urethra, other (clear yellow urine in burton bag) Skin: warm, no rashes or abrasions, No mottled Musculoskeletal: no muscle tenderness, no joint effusions Neurologic: CN II-XII Intact, No asterixes Lab Data & Imaging Review 06/15/16 03:58 06/15/16 06:00 WBC 5.60 10^3/uL (3.80-9.50) 06/15/16 03:58 RBC 4.84 10^6/uL (4.40-6.38) 06/15/16 03:58 Hgb 14.0 g/dL (13.7-17.5) 06/15/16 03:58 Hct 47.3 % (40.0-51.0) 06/15/16 03:58 MCV 97.7 fL (81.5-99.8) 06/15/16 03:58 MCH 28.9 pg (27.9-34.1) 06/15/16 03:58 MCHC 29.6 g/dL (32.4-36.7) L 06/15/16 03:58 RDW 14.3 % (11.5-15.2) 06/15/16 03:58 Plt Count 158 10^3/uL (150-400) 06/15/16 03:58 MPV 9.3 fL (8.7-11.7) 06/15/16 03:58 Neut % (Auto) 87.9 % (39.3-74.2) H 06/15/16 03:58 Lymph % (Auto) 8.2 % (15.0-45.0) L 06/15/16 03:58 [place] % (Auto) 3.0 % (4.5-13.0) L 06/15/16 03:58 Eos % (Auto) 0.0 % (0.6-7.6) L 06/15/16 03:58 Baso % (Auto) 0.2 % (0.3-1.7) L 06/15/16 03:58 Nucleat RBC Rel Count 0.0 % (0.0-0.2) 06/15/16 03:58 Absolute Neuts (auto) 4.92 10^3/uL (1.70-6.50) 06/15/16 03:58 Absolute Lymphs (auto) 0.46 10^3/uL (1.00-3.00) L 06/15/16 03:58 Absolute Monos (auto) 0.17 10^3/uL (0.30-0.80) L 06/15/16 03:58 Absolute Eos (auto) 0.00 10^3/uL (0.03-0.40) L 06/15/16 03:58 Absolute Basos (auto) 0.01 10^3/uL (0.02-0.10) L 06/15/16 03:58 Absolute Nucleated RBC 0.00 10^3/uL (0-0.01) 06/15/16 03:58 Immature Gran % 0.7 % (0.0-1.1) 06/15/16 03:58 Immature Gran # 0.04 10^3/uL (0.00-0.10) 06/15/16 03:58 PT 15.4 SEC (12.0-15.0) H 06/15/16 03:58 INR 1.22 (0.83-1.16) H 06/15/16 03:58 APTT 35.4 SEC (23.0-38.0) D 06/15/16 00:40 D-Dimer 8.09 ug/mLFEU (0.00-0.50) H 06/14/16 20:20 Heparin Anti-Xa, Unfract 0.77 IU/mL (0.32-0.67) H* 06/15/16 06:00 Puncture Site NONE GIVEN 06/15/16 05:25 Patient Temperature 37.0 DEGREES 06/15/16 05:25 pCO2 56 mmHg (34-38) H 06/15/16 05:25 pO2 77 mmHg (65-75) H 06/15/16 05:25 Total CO2 26 mEq/L (23-27) 06/15/16 05:25 ABG pH 7.26 (7.35-7.45) L 06/15/16 05:25 ABG PO2/FiO2 Ratio 154 RATIO 06/15/16 05:25 ABG O2 Saturation 93 % (92-95) 06/15/16 05:25 ABG Base Excess -3.1 mEq/L (-2.5-2.5) L 06/15/16 05:25 VBG Lactic Acid 1.3 mmol/L (0.7-2.1) 06/15/16 04:34 O2 Concentration % 50 % (0-100) 06/15/16 05:25 Expiratory Pressure 5 06/15/16 05:25 Inspiratory Pressure 20 06/15/16 05:25 Mode BiPAP YES 06/15/16 05:25 Sodium 150 mEq/L (134-144) H 06/15/16 03:58 Potassium 5.3 mEq/L (3.5-5.2) H 06/15/16 06:00 Chloride 110 mEq/L (97-110) 06/15/16 03:58 Carbon Dioxide 27 mEq/l (22-31) 06/15/16 03:58 Bicarbonate 24 mEq/L (22-26) 06/15/16 05:25 Anion Gap 13 mEq/L (8-16) 06/15/16 03:58 BUN 48 mg/dL (7-23) H 06/15/16 03:58 Creatinine 3.3 mg/dL (0.7-1.3) H 06/15/16 03:58 Estimated GFR 18 06/15/16 03:58 Glucose 200 mg/dL (70-100) H D 06/15/16 03:58 Calcium 7.5 mg/dL (8.5-10.4) L 06/15/16 03:58 Magnesium 2.1 mg/dL (1.6-2.3) 06/15/16 03:58 Total Bilirubin 0.5 mg/dL (0.1-1.4) 06/15/16 03:58 Conjugated Bilirubin 0.5 mg/dL (0.0-0.5) 06/14/16 20:20 Unconjugated Bilirubin 0.3 mg/dL (0.0-1.1) 06/14/16 20:20 AST 22 IU/L (17-59) 06/15/16 03:58 ALT 37 IU/L (21-72) 06/15/16 03:58 Alkaline Phosphatase 72 IU/L (38-126) 06/15/16 03:58 Total Protein 6.6 g/dL (6.3-8.2) 06/15/16 03:58 Albumin 3.6 g/dL (3.5-5.0) 06/15/16 03:58 Specimen Hemolysis Cancelled 06/14/16 18:46 Urine Color YELLOW 06/14/16 18:35 Urine Appearance HAZY 06/14/16 18:35 Urine pH 5.0 (5.0-7.5) 06/14/16 18:35 Ur Specific [place] 1.015 (1.002-1.030) 06/14/16 18:35 Urine Protein NEGATIVE (NEGATIVE) 06/14/16 18:35 Urine Ketones NEGATIVE (NEGATIVE) 06/14/16 18:35 Urine Blood NEGATIVE (NEGATIVE) 06/14/16 18:35 Urine Nitrate NEGATIVE (NEGATIVE) 06/14/16 18:35 Urine Bilirubin NEGATIVE (NEGATIVE) 06/14/16 18:35 Urine Urobilinogen NEGATIVE EU (0.2-1.0) 06/14/16 18:35 Ur Leukocyte Esterase NEGATIVE (NEGATIVE) 06/14/16 18:35 Ur Random Creatinine 108.0 mg/dL 06/15/16 00:40 Ur Random Sodium 77 mEq/L (30-90) 06/15/16 00:40 Urine Glucose NEGATIVE (NEGATIVE) 06/14/16 18:35 Influenza A & B (PCR) POSITIVE FOR FLU A (NEGATIVE) H 06/14/16 20:50 Assessment & Plan Assessment: Assessment/Plan: CKD stage IV: Pt appears to be at baseline renal function, nonoliguric. - Will continue to monitor renal function. - Avoid MOM, morphine, demerol, NSAIDs, contrast, aminoglycosides, fleets, and other nephrotoxins. Hyperkalemia: improved with full medical intervention with kayexalate, Lasix, bicarb, insulin/D50. - Will recheck K this afternoon. Hypernatremia: pt appears dehydrated, Na up to 150, free water deficit 5.1L. - Will change fluids to D5W @ 100ml/hr. - Will continue to monitor. Thank you for the interesting consult. Nephrology will continue to follow, please call if you have any additional questions or concerns.
[2016-06-15] MEDS: D5W 1,000 ML IV SCH (11:10)
[2016-06-15 13:16] LABS: ANION GAP 13 mEq/L (8-16); CALCIUM 7.5 mg/dL (8.5-10.4); CARBON DIOXIDE 27 mEq/l (22-31); CHLORIDE 105 mEq/L (97-110); CREATININE 3.2 mg/dL (0.7-1.3); GLOMERULAR FILTRATION RATE 18; GLUCOSE 201 mg/dL (70-100); POTASSIUM 5.3 mEq/L (3.5-5.2); SODIUM 145 mEq/L (134-144)
--- NOTE | 2016-06-15 15:13 | HOSPPROG ---
Hospitalist Progress Note Assessment/Plan: 89 yo M with hx of chronic respiratory failure and diastolic heart failure as well as ckd presenting with acute encephalopathy # acute encephalopathy: remains quite sedated and minimally responsive intermittently here. When he is awake, his mental status seems fairly normal. Likely delerium related to infection as next # LLL PNA: patient at risk for aspiration as well as CAP, also positive for influenza. Started on zosyn for coverage of possible aspiration. # influenza: with likely concurrent aspiration pna present in the LLL. Started on renally dosed tamiflu # acute on chronic respiratory failure: at baseline on 2-4 L seems like from chart review, currently in the low 90s on 4L which is essentially at baseline. In the setting of influenza, pna and likely PE given dvt as next. # BLE DVT: fairly extensive, patient minimally mobile it seems at baseline so unclear how much this is likely to impact his quality of life but depending on improvement in respiratory status could consider a filter. Continue heparin gtt # ckd: seems to be essentially at baseline, renal US negative, renal consulted. # hyperkalemia: in setting of above and now resolved, continue to monitor # hyperglycemia: without clear dx of dm in the past, will get hgb a1c and follow # dispo: IP status, currently requiring high level of nursing care given poor mental status Patient new to my care. Care plan reviewed with pulmonary on multidisciplinary team Subjective: no significant overnight events, patient currently somnolent and minimally arousable Objective: Vital Signs Temp Pulse Resp BP Pulse Ox 36.7 C 64 16 108/54 L 92 06/15/16 08:00 06/15/16 14:00 06/15/16 14:00 06/15/16 14:00 06/15/16 14:00 Laboratory Results 06/15/16 03:58 06/15/16 12:45 06/14/16 06/15/16 06/16/16 05:59 05:59 05:59 Intake Total 2468 Output Total 500 Balance 1968 PT 15.4 SEC (12.0-15.0) H 06/15/16 03:58 INR 1.22 (0.83-1.16) H 06/15/16 03:58 somnolent anicteric op clear poor dentition rrr no mrg cta with dec bs at bases obese, soft nt no cce warm dry well perfused somnolent but when alert oriented to place and self ICD10 Worksheet Patient Problems: Problems Problem Status Diagnosed Acute hyperkalemia Acute Ofqmj-bw-bekikvo renal failure Acute Influenza Acute Pneumonia Acute
[2016-06-15] MEDS ORDERED: CLOBETASOL 0.05% 15 GM CRTUBE TP PRN (15:30)
[2016-06-15] MEDS ORDERED: PIPERACILLIN/TAZO 3.375 GM/DEX 50 ML IV SCH (20:54)
--- NOTE | 2016-06-15 21:08 | GCON ---
[f rep st] CONSULTATION PULMONARY CRITICAL CARE CONSULTATION DATE OF CONSULTATION: 06/15/2016 REASON FOR CONSULTATION: Acute respiratory failure, influenza A, pneumonia. HISTORY: The patient is an 89-year-old gentleman who is a resident of [facility]. Over the past several days, the patient has had increased shortness breath and cough. Yesterday, he was found to b e somewhat confused and was brought to the emergency room. Evaluation revealed possible left-sided i nfiltrate and he had a positive influenza test. He had significant wheezing and was in respiratory d istress. He was given [id number] nebulized treatments and placed on BiPAP and admitted [facility]. Recent history is hard to obtain. Apparently does have some underlying lung disease and is on oxygen at [facility]. The full extent of his lung disease is unknown. He may have smoked cigarettes in the past. He also has chronic renal insufficiency with baseline creatinine of approximately 3. Other medical problems include systemic hypertension, congestive heart failure with diastolic dysfunc tion, and previous pneumonia. PAST MEDICAL HISTORY: As outlined above. In addition, there is a history of prostatic hypertrophy, constipation, osteoarthritis, and chronic pain. MEDICATIONS: At home included Flomax, Cozaar, clobetasol, Lasix 20 mg per day, amlodipine, guaifenes in, oxycodone p.r.n., and other p.r.n. medications. PAST SURGICAL HISTORY: Includes prostate surgery. ALLERGIES: None listed. SOCIAL HISTORY: The patient apparently did smoke cigarettes in the past. Smoking history cannot be obtained from the patient. He is a resident of [facility] but has not been there for a significan t amount of time. He does have a son who is currently not present. He does have a MOLST form which indicates he is DNR. FAMILY HISTORY: Unobtainable. REVIEW OF SYSTEMS: Unobtainable. PHYSICAL EXAMINATION: GENERAL: Reveals a gentleman who is off BiPAP, awake and responsive. However , memory seems poor and answers are short and possibly not accurate. VITAL SIGNS: Blood pressure is approximately 120/60, heart rate 68 with sinus rhythm on the monitor. Few PACs are noted. Respirat ory rate is 16. On 4 L nasal cannula, saturations are 94%. He is afebrile. HEENT: Remarkable for dry mucous membranes. There is no lymphadenopathy or thyromegaly. Jugular venous pressure does not appear to be present. CHEST: Reveals coarse breath sounds bilaterally. There are some rales at the left base and expiratory wheezes. Expiratory phase is mildly prolonged. There is some mild central congestion, no sunshine rhonchi. HEART: Regular in rate and rhythm. There is a soft systolic murmur. There is no obvious gallop. P2 does appear to be increased. ABDOMEN: Soft, nontender. Bowel charles nds are present, but diminished. EXTREMITIES: Reveal 1+ edema. NEUROLOGIC: Nonfocal. He moves al l extremities equally and reports sensation to touch. He is oriented to hospital and person only. DATABASE: Chest x-ray shows a relatively high left diaphragm compared to the right. There is some a telectasis or infiltrate at the left base. The right appears clear. Bilateral lower extremity venous Doppler ultrasound is positive for deep venous thrombosis. Abdominal ultrasound is negative. Cardiac echo shows a left ventricular ejection fraction of approximately 70%. Diastolic dysfunction is present. Right ventricular estimated systolic pressure is 49. There is mild to moderate valvular heart disease. White blood cell count is 5600, hematocrit 47. Platelets are normal. Unfractionated heparin is elev ated at 1.1 secondary to his heparin drip. Arterial blood gas done earlier this morning on BiPAP alyce wed a pH of 7.26, pCO2 of 56, and pO2 of 77. He was largely obtunded when this gas was done. This h as resolved. Sodium is 145, potassium 5.3, BUN 48, with a creatinine of 3.2. Glucose is 200. Urina lysis on admission was unremarkable. Influenza A by PCR was positive. ASSESSMENT: 1. Acute respiratory failure. The patient required BiPAP on admission. He had significant wheezing but is currently improved. Appears to have influenza bronchopneumonia with bronchospasm. He has re sponded nicely to albuterol by nebulizer. He is on DuoNeb currently. Solu-Medrol is being given. Shelby lockett is on Tamiflu. He is also on Zosyn; however, there is little evidence for acute bacterial pneumoni a at this time. 2. Chronic obstructive pulmonary disease. This is a presumed diagnosis. He did smoke cigarettes in the past. He is on oxygen at his longterm facility; however, no inhaled medications are list ed. 3. Chronic renal insufficiency. This has been noted in the past. Baseline creatinine is 2.5 to 3. He is being followed by Ren[facility]. 4. Deep venous thrombosis. He has bilateral lower extremity deep venous thromboses. He is being ap propriately treated with heparin. Long-term anticoagulation will be needed if he has no absolute con traindications to this. If he does, a filter may need to be placed. It is unknown whether he has fu ll pulmonary embolic disease. However, this is not necessarily going to pipe changer at this [facility]. V/Q scan could be considered. 5. History of other medical problems as outlined in the history of present illness. PLAN/RECOMMENDATIONS: The patient will be kept in the intensive care unit. Bronchodilator therapy a nd steroids will be continued. Antibiotics will be continued. If there is no evidence of a signific ant bacterial pneumonia at 72 hours, Zosyn could be stopped. Tamiflu will be continued. Further plans and recommendations will be made based on his progress over the next 12 to 24 hours. He is currently listed as a full cor; however, his advance directives may indicate otherwise. This w ill be sorted out and appropriate advanced directives will be followed. /[id number]/MODL
[2016-06-16] MEDS: PIPERACILLIN/TAZO 2.25 GM/DEX 50 ML IV SCH ×4 (00:43→17:45)
[2016-06-16 04:40] LABS: % IMMATURE GRANULYOCYTES 0.4 % (0.0-1.1); ABSOLUTE IMMATURE GRANULOCYTES 0.04 10^3/uL (0.00-0.10); ADD DIFF? NO; ADD MORPH? NO; ADD SCAN? NO; ATYPICAL LYMPHOCYTE FLAG 0 (0-99); FRAGMENT RBC FLAG 0 (0-99); HEMATOCRIT 41.3 % (40.0-51.0); HEMOGLOBIN 12.8 g/dL (13.7-17.5); LEFT SHIFT FLG 0 (0-99); LIPEMIA HEMOLYSIS FLAG 80 (0-99); MEAN CELL HEMOGLOBIN 29.6 pg (27.9-34.1); MEAN CELL VOLUME 95.4 fL (81.5-99.8); MEAN PLATELET VOLUME 9.2 fL (8.7-11.7); PLATELET CLUMPS FLAG 0 (0-99); PLATELET COUNT 150 10^3/uL (150-400); RED BLOOD CELL COUNT 4.33 10^6/uL (4.40-6.38); RED CELL DISTRIBUTION WIDTH 13.6 % (11.5-15.2)
[2016-06-16 04:50] LABS: ANION GAP 10 mEq/L (8-16); CARBON DIOXIDE 26 mEq/l (22-31); CHLORIDE 106 mEq/L (97-110); CREATININE 3.3 mg/dL (0.7-1.3); GLOMERULAR FILTRATION RATE 18; GLUCOSE 183 mg/dL (70-100); POTASSIUM 4.5 mEq/L (3.5-5.2); SODIUM 142 mEq/L (134-144)
[2016-06-16] MEDS: D5W 1,000 ML IV SCH (05:03)
[2016-06-16] MEDS: IPRATROPIUM/ALBUTEROL 3 ML DEYVIAL IH SCH ×4 (05:38→20:52)
[2016-06-16] MEDS: OSELTAMIVIR 6 MG/ML UDSYR PO SCH (07:58)
[2016-06-16] MEDS: methylPREDNISolone SOD SUCC 125 MG/2 ML VIAL IVP SCH (07:58)
[2016-06-16 09:47] LABS: HEMOGLOBIN A1C 6.6 % (4.0-6.0)
[2016-06-16] MEDS ORDERED: BISACODYL 10 MG SUPP PR PRN (10:46)
[2016-06-16] MEDS ORDERED: MAGNESIUM HYDROXIDE 30 ML UDCUP PO PRN (10:46)
[2016-06-16] MEDS ORDERED: POLYETHYLENE GLYCOL 3350 17 GM PKT PO PRN (10:46)
[2016-06-16] MEDS ORDERED: LACTULOSE 20 GM/30 ML UDCUP PO PRN (10:46)
[2016-06-16] MEDS: predniSONE 20 MG TAB PO SCH (11:02)
--- NOTE | 2016-06-16 11:20 | SOAPPROG ---
SOAP Progress Note Assessment/Plan: Assessment: 1. CKD IV. Creat stable at baseline. 2. Hypernatremia. Na came down nicely with D5W. Continue at 50cc/h, d/c once po intake better. 3. Resp distress. Influenza A + aspiration pneumonia. Continue abx, tamiflu. 4. AMS. Improving. 5. DVTs. Continue heparin gtt, coumadin. Plan: 06/16/16 11:18 06/16/16 11:19 06/16/16 11:20 Subjective: Feeling better today. Objective: Vital Signs Temp Pulse Resp BP Pulse Ox 37.1 C 65 18 102/66 96 06/15/16 20:00 06/16/16 11:00 06/16/16 11:00 06/16/16 10:00 06/16/16 11:00 Laboratory Results 06/16/16 04:30 06/16/16 04:30 06/15/16 06/16/16 06/17/16 05:59 05:59 05:59 Intake Total 2468 2989 Output Total 500 1700 150 Balance 1968 1289 -150 PT 15.4 SEC (12.0-15.0) H 06/15/16 03:58 INR 1.22 (0.83-1.16) H 06/15/16 03:58 Debilitated, obese, elderly male in chair on NC O2, with deep rhonchorous cough RRR, no m/g/r Diffuse rhonchi/wheezes Abdom soft, nt Trace LE pitting edema ICD10 Worksheet Patient Problems: Problems Problem Status Diagnosed Acute hyperkalemia Acute Nzcch-kt-oorlwnj renal failure Acute Encephalopathy acute Acute Influenza Acute Pneumonia Acute
--- NOTE | 2016-06-16 16:18 | HOSPPROG ---
Hospitalist Progress Note Assessment/Plan: 89 yo M with hx of chronic respiratory failure and diastolic heart failure as well as ckd presenting with acute encephalopathy # acute encephalopathy: resolved overnight, likely toxic metabolic encephalopathy in setting of acute infection as next # LLL PNA: patient at risk for aspiration as well as CAP, also positive for influenza. Started on zosyn for coverage of possible aspiration. Will continue for now and likely change to oral abx in am if continues to do well. # influenza: continued on tamiflu # acute on chronic respiratory failure: at baseline on 2-4 L seems like from chart review, currently in the high 90s on 3L which is essentially at baseline. In the setting of influenza, pna and likely PE given dvt as next. # BLE DVT: fairly extensive,but relatively asymptomatic. Continue heparin gtt and coumadin. Cannot use LMWH given renal function. # ckd: seems to be essentially at baseline, renal US negative, renal consulted. # hyperkalemia: in setting of above and now resolved, continue to monitor # hyperglycemia: without clear dx of dm in the past, will get hgb a1c and follow # dispo: IP status, multiple active issues Reviewed care plan with Dr. Morris and multidisciplinary care team. Further hx obtained from patients son present at bedside. Subjective: no significant overnight events, patient awake and alert and feeling generally weak but otherwise much better Objective: Vital Signs Temp Pulse Resp BP Pulse Ox 37.1 C 65 18 102/66 96 06/15/16 20:00 06/16/16 11:00 06/16/16 11:00 06/16/16 10:00 06/16/16 11:00 Laboratory Results 06/16/16 04:30 06/16/16 04:30 06/15/16 06/16/16 06/17/16 05:59 05:59 05:59 Intake Total 2468 2989 450 Output Total 500 1700 450 Balance 1968 1289 0 PT 15.4 SEC (12.0-15.0) H 06/15/16 03:58 INR 1.22 (0.83-1.16) H 06/15/16 03:58 somnolent anicteric op clear poor dentition rrr no mrg cta with dec bs at bases obese, soft nt no cce warm dry well perfused somnolent but when alert oriented to place and self - Time Spent With Patient Time Spent with Patient: greater than 35 minutes Time Spent with Patient: Greater than 35 minutes spent on this patients care, greater than 50% of time spent counseling, educating, and coordinating care regarding the above mentioned plan. ICD10 Worksheet Patient Problems: Problems Problem Status Diagnosed Acute hyperkalemia Acute Slhqt-el-hwrsbaf renal failure Acute Encephalopathy acute Acute Influenza Acute Pneumonia Acute
[2016-06-16] MEDS: WARFARIN SODIUM 5 MG TAB PO SCH (17:45)
[2016-06-16] MEDS: HEPARIN/DEXTROSE 500 ML IV SCH (17:45)
--- NOTE | 2016-06-16 17:51 | PDINTPN ---
Stable Attendant Progress Note Assessment/Plan: Assessment: Influenza A bronchopneumonia, with acute respiratory failure, now resolved. On Tamiflu Possible left lower lobe pneumonia. On Zosyn. Chest x-ray not very impressive. History of possible COPD. On oxygen at home. Not on inhalers at home. Did smoke in the past. No evidence of significant wheezing here. Continue p.r.n. nebulized treatments, steroids Bilateral DVT: On heparin drip. Coumadin initiated. No clinical evidence of associated pulmonary emboli and treatment will not change. No VQ indicated from my standpoint. Chronic renal insufficiency. At baseline. Appreciate renal consultation. History of hypertension, fluid retention, constipation. Largely wheelchair- bound. Advanced directives: Do not resuscitate. Discussed with the patient's son who is very clear on this. Plan: Continue care in the intensive care unit for now. Can transition to step -down unit status, probably to a medical-surgical bed tomorrow. Continue Tamiflu and antibiotics for now, along with other therapies. Consider discharge back to [facility] in the next 1-2 days. Repeat chest x-ray tomorrow. Follow lab. 30 minutes of critical care time spent directly with the patient. Subjective: Feels better, denies significant shortness of breath. AWake alert. Objective: Vital Signs Temp Pulse Resp BP Pulse Ox 37.2 C 70 20 131/79 H 93 06/16/16 16:00 06/16/16 16:15 06/16/16 16:15 06/16/16 16:00 06/16/16 16:15 Laboratory Results 06/16/16 04:30 06/16/16 04:30 06/15/16 06/16/16 06/17/16 05:59 05:59 05:59 Intake Total 2468 2989 590 Output Total 500 1700 450 Balance 1968 1289 140 PT 15.4 SEC (12.0-15.0) H 06/15/16 03:58 INR 1.22 (0.83-1.16) H 06/15/16 03:58 Physical Exam - Physical Exam General Appearance: alert (In chair), No no apparent distress EENT: other (Nasal cannula 3-4 L) Neck: normal inspection (No obvious jugular venous distension) Respiratory: lungs clear, decreased breath sounds (At the bases. Apnea breath sounds somewhat coarse), rales (Few at the left base), wheezing (Mild), No rhonchi Cardiac/Chest: regular rate, rhythm, systolic murmur Abdomen: non-tender, soft (Overweight), No normal bowel sounds (Decreased, present) Male Genitalia: other (Output.) Skin: normal color, warm/dry Extremities: pedal edema Neuro/Psych: no motor/sensory deficits (Non focal), cognition abnormalities ( Improved) ICD10 Worksheet Patient Problems: Problems Problem Status Diagnosed Acute hyperkalemia Acute Iiwij-mq-yducidy renal failure Acute Encephalopathy acute Acute Influenza Acute Pneumonia Acute
[2016-06-16] MEDS: SENNOSIDES/DOCUSATE SODIUM TAB PO SCH (21:25)
[2016-06-16] MEDS: MELATONIN 3 MG TAB PO SCH (23:11)
[2016-06-17] MEDS: PIPERACILLIN/TAZO 2.25 GM/DEX 50 ML IV SCH ×4 (00:19→17:56)
[2016-06-17 05:43] LABS: INR 1.18 (0.83-1.16)
[2016-06-17] MEDS: IPRATROPIUM/ALBUTEROL 3 ML DEYVIAL IH SCH ×4 (05:54→21:23)
[2016-06-17 06:49] LABS: ALANINE AMINOTRANSFERASE 39 IU/L (21-72); ALKALINE PHOSPHATASE 50 IU/L (38-126); ANION GAP 13 mEq/L (8-16); ASPARTATE AMINOTRANSFERASE 21 IU/L (17-59); BILIRUBIN,TOTAL 0.5 mg/dL (0.1-1.4); CALCIUM 6.6 mg/dL (8.5-10.4); CARBON DIOXIDE 27 mEq/l (22-31); CHLORIDE 106 mEq/L (97-110); CREATININE 3.5 mg/dL (0.7-1.3); GLOMERULAR FILTRATION RATE 17; GLUCOSE 111 mg/dL (70-100); POTASSIUM 4.9 mEq/L (3.5-5.2); SODIUM 146 mEq/L (134-144); TOTAL PROTEIN 5.6 g/dL (6.3-8.2)
[2016-06-17] MEDS: OSELTAMIVIR 6 MG/ML UDSYR PO SCH (08:11)
[2016-06-17] MEDS: SENNOSIDES/DOCUSATE SODIUM TAB PO SCH ×2 (08:12→21:02)
[2016-06-17] MEDS: predniSONE 20 MG TAB PO SCH (08:13)
[2016-06-17 09:49] LABS: BASE EXCESS -1.3 mEq/L (-2.5-2.5); BICARBONATE 25 mEq/L (22-26); MEASURED OXYGEN SATURATION 95 % (92-95); PCO2 48 mmHg (34-38); PO2 79 mmHg (65-75); TCO2 26 mEq/L (23-27)
--- NOTE | 2016-06-17 10:42 | SOAPPROG ---
SOAP Progress Note Assessment/Plan: Assessment:Plan: CKD-stable state 4 CKD -baseline creatinine 3.3 -creatinine today near that baseline with a level of 3.5 Hypernatremia-better -encourage PO fluids Hyperkalemia-resolved Influenza-getting better 06/17/16 10:40 Subjective: feels better Objective: Vital Signs Temp Pulse Resp BP Pulse Ox 36.6 C 61 18 101/67 90 L 06/17/16 07:49 06/17/16 07:49 06/17/16 07:49 06/17/16 07:49 06/17/16 07:49 Laboratory Results 06/16/16 04:30 06/17/16 05:00 06/16/16 06/17/16 06/18/16 05:59 05:59 05:59 Intake Total 2989 640 Output Total 1700 450 Balance 1289 190 PT 15.0 SEC (12.0-15.0) 06/17/16 05:00 INR 1.18 (0.83-1.16) H 06/17/16 05:00 Physical Exam - Physical Exam General Appearance: alert, no apparent distress EENT: normal ENT inspection Neck: normal inspection Respiratory: decreased breath sounds, rales Cardiac/Chest: regular rate, rhythm, No diastolic murmur, No systolic murmur Abdomen: normal bowel sounds, non-tender, soft Extremities: No swelling ICD10 Worksheet Patient Problems: Problems Problem Status Diagnosed Acute hyperkalemia Acute Aaqay-wt-mzpmgux renal failure Acute Encephalopathy acute Acute Influenza Acute Pneumonia Acute
[2016-06-17 11:28] LABS: COLOR YELLOW; LEUKOCYTE ESTERASE,URINE NEGATIVE (NEGATIVE); NITRITE,URINE NEGATIVE (NEGATIVE)
[2016-06-17] MEDS ORDERED: PNEUMOC 13-VAL CONJ-DIP CRM/PF 0.5 ML SYR IM ONE (12:32)
[2016-06-17] MEDS ORDERED: FLU VACC TS 2016-17(65YR+)/PF 0.5 ML SYR (FLUZONE HIGH DOSE) IM ONE (12:32)
[2016-06-17] MEDS: HEPARIN/DEXTROSE 500 ML IV SCH (12:37)
--- NOTE | 2016-06-17 13:40 | HOSPPROG ---
Hospitalist Progress Note Assessment/Plan: 89 yo M with hx of chronic respiratory failure and diastolic heart failure as well as ckd presenting with acute encephalopathy # acute encephalopathy: likely toxic metabolic encephalopathy in setting of acute infection as next, largely resolved but this am again a bit somnolent and altered. Checked an abg to r/o co2 narcosis which looked ok. ? related to hypoxia--had o2 off and was looking cyanotic and once awake having strange tic to his mouth and face that he was not aware of. # LLL PNA: patient at risk for aspiration as well as CAP, also positive for influenza. Started on zosyn for coverage of possible aspiration. Will continue for now and likely change to levofloxacin # influenza: continued on tamiflu # acute on chronic respiratory failure: at baseline on 2-4 L seems like from chart review, currently in the high 90s on 3L which is essentially at baseline. In the setting of influenza, pna and likely PE given dvt as next. # BLE DVT: fairly extensive,but relatively asymptomatic. Continue heparin gtt and coumadin. Cannot use LMWH given renal function. [place] [id number] sc heparin tid when above improved # ckd: seems to be essentially at baseline, renal US negative, renal consulted. # hyperkalemia: in setting of above and now resolved, continue to monitor # hyperglycemia: hgb a1c 6.6 and likely driven by stress # dispo: IP status, multiple active issues Subjective: no significant overnight events, patient this am awake but cyanotic and having a facial tic Objective: Vital Signs Temp Pulse Resp BP Pulse Ox 36.6 C 65 18 101/67 92 06/17/16 07:49 06/17/16 10:50 06/17/16 10:50 06/17/16 07:49 06/17/16 10:50 Laboratory Results 06/16/16 04:30 06/17/16 05:00 06/16/16 06/17/16 06/18/16 05:59 05:59 05:59 Intake Total 2989 640 Output Total 1700 450 Balance 1289 190 PT 15.0 SEC (12.0-15.0) 06/17/16 05:00 INR 1.18 (0.83-1.16) H 06/17/16 05:00 somnolent anicteric op clear poor dentition rrr no mrg cta with dec bs at bases obese, soft nt no cce warm dry well perfused somnolent but when alert oriented to place and self ICD10 Worksheet Patient Problems: Problems Problem Status Diagnosed Acute hyperkalemia Acute Eswqs-ej-dktcpnv renal failure Acute Encephalopathy acute Acute Influenza Acute Pneumonia Acute
[2016-06-17] MEDS: WARFARIN SODIUM 5 MG TAB PO SCH (17:08)
[2016-06-17] MEDS: MELATONIN 3 MG TAB PO SCH (21:01)
[2016-06-18] MEDS: PIPERACILLIN/TAZO 2.25 GM/DEX 50 ML IV SCH ×5 (00:37→23:29)
[2016-06-18] MEDS: IPRATROPIUM/ALBUTEROL 3 ML DEYVIAL IH SCH ×4 (05:52→22:24)
[2016-06-18 05:56] LABS: INR 1.45 (0.83-1.16); PROTIME(PATIENT) 17.6 SEC (12.0-15.0)
[2016-06-18] MEDS: HEPARIN/DEXTROSE 500 ML IV SCH (05:58)
[2016-06-18 06:00] LABS: ALANINE AMINOTRANSFERASE 72 IU/L (21-72); ALBUMIN 3.1 g/dL (3.5-5.0); ALKALINE PHOSPHATASE 42 IU/L (38-126); ANION GAP 11 mEq/L (8-16); ASPARTATE AMINOTRANSFERASE 46 IU/L (17-59); BILIRUBIN,TOTAL 0.5 mg/dL (0.1-1.4); CALCIUM 6.4 mg/dL (8.5-10.4); CARBON DIOXIDE 27 mEq/l (22-31); CHLORIDE 106 mEq/L (97-110); CREATININE 3.6 mg/dL (0.7-1.3); GLOMERULAR FILTRATION RATE 16; GLUCOSE 130 mg/dL (70-100); POTASSIUM 4.3 mEq/L (3.5-5.2); SODIUM 144 mEq/L (134-144); TOTAL PROTEIN 5.8 g/dL (6.3-8.2)
--- NOTE | 2016-06-18 08:32 | WOCRNPDOC ---
WOCRN Advanced Assessment Note - Skin Integrity Problem, Advanced Assess Coccyx Pressure Injury Dressing Type: Allevyn Life (sacral dressing) Dressing Description: Clean/Dry, Intact Exudate Amount: None Exudate Characteristic(s): None Integumentary Issue Intervention: Visualized Under Dressing Guido Wound Tissue: Blanching, Erythema Guido Wound Swelling: None Wound Bed Color: Red Site Odor: None Site Measurement - Head-to-Toe Length X Width X Depth (cm): [id number] Pressure Injury Stage: Stage 1 Pressure Injury Present on Admit: Yes Skin Integrity Problem Comment: Small area of non-blanching erythema directly over coccyx, consistent in appearance w/ stage 1 pressure injury. Skin is presently intact w/ no associated swelling. Blanching erythema noted guido-wound w/ no other abnormalities noted. Continue w/ Allevyn Life scaral dressing placed by nursing, and off-load coccyx when in bed. Pressure-relieving cushion in chair.
[2016-06-18] MEDS: OSELTAMIVIR 6 MG/ML UDSYR PO SCH (08:34)
[2016-06-18] MEDS: predniSONE 20 MG TAB PO SCH (08:35)
--- NOTE | 2016-06-18 08:44 | HOSPPROG ---
Hospitalist Progress Note Assessment/Plan: Patient is an 89 yo M with hx of chronic respiratory failure and diastolic heart failure as well as ckd presenting with acute encephalopathy. Today is my first encounter with the patient/chart reviewed. # acute encephalopathy: * likely toxic metabolic encephalopathy in setting of acute infection * he is alert during my interview # LLL PNA: * patient at risk for aspiration as well as CAP, also positive for influenza. Started on zosyn for coverage of possible aspiration. Will continue for now and likely change to levofloxacin # influenza: * received full treatment with Tamiflu # acute on chronic respiratory failure: * Multifactorial/ influenza, pna, possible PE (patient has extensive DVT's) # BLE DVT: fairly extensive,but relatively asymptomatic. * Continue heparin gtt and Coumadin. Cannot use LMWH given renal function. [place] [id number] sc heparin tid when above improved * INR is 1.45 # ckd/ stage IV * close to his back at baseline * creatinine is 3.6/baseline is around 3.3 # hyperkalemia: resolved # hyperglycemia: hgb a1c 6.6 /stress induced # dispo: IP status, multiple active issues/ recheck labs in the morning. Will check an INR in the morning. Subjective: sunshine is eating a donut when I came to see him. Says he is not having any pain. Objective: Vital Signs Temp Pulse Resp BP Pulse Ox 36.6 C 64 23 H 116/67 93 06/18/16 07:52 06/18/16 07:52 06/18/16 07:52 06/18/16 07:52 06/18/16 07:52 Laboratory Results 06/16/16 04:30 06/18/16 05:40 06/17/16 06/18/16 06/19/16 05:59 05:59 05:59 Intake Total 640 940 Output Total 450 550 Balance 190 390 PT 17.6 SEC (12.0-15.0) H 06/18/16 05:40 INR 1.45 (0.83-1.16) H 06/18/16 05:40 - Physical Exam Constitutional: no apparent distress, appears nourished, chronically ill appearing, obese Eyes: PERRL Ears, Nose, Mouth, Throat: hearing normal Cardiovascular: regular rate and rhythym Respiratory: no respiratory distress, reduced air movement Gastrointestinal: normoactive bowel sounds, other ( Large and round) Skin: warm Neurologic: other ( alert and oriented to himself and place) Psychiatric: interacting appropriately, not encephalopathic ICD10 Worksheet Patient Problems: Problems Problem Status Diagnosed Acute hyperkalemia Acute Atmha-kj-onygfjl renal failure Acute Encephalopathy acute Acute Influenza Acute Pneumonia Acute
[2016-06-18] MEDS: SENNOSIDES/DOCUSATE SODIUM TAB PO SCH ×2 (09:50→21:00)
--- NOTE | 2016-06-18 11:34 | SOAPPROG ---
SOAP Progress Note Assessment/Plan: Assessment/Plan: CKD stage IV: Cr is at baseline in low to mid 3 range. - Will continue to monitor renal parameters. - Avoid MOM, morphine, demerol, NSAIDs, contrast, aminoglycosides, fleets, and other nephrotoxins. Hypernatremia: improved, will continue to monitor. Hyperkalemia: resolved, will continue to monitor. ZACH: phos elevated. Will change to renal diet and monitor for now. Subjective: No acute events overnight. Pt with no complaints this am. Objective: Vital Signs Temp Pulse Resp BP Pulse Ox 36.6 C 64 23 H 116/67 93 06/18/16 07:52 06/18/16 07:52 06/18/16 07:52 06/18/16 07:52 06/18/16 07:52 Laboratory Results 06/16/16 04:30 06/18/16 05:40 06/17/16 06/18/16 06/19/16 05:59 05:59 05:59 Intake Total 640 940 Output Total 450 550 Balance 190 390 PT 17.6 SEC (12.0-15.0) H 06/18/16 05:40 INR 1.45 (0.83-1.16) H 06/18/16 05:40 General: alert and oriented, no acute distress Eyes: EOMI, PERRL OP: Clear CV: RRR Resp: nonlabored respirations Abd; Soft, NT Ext: +1 edema BLE Neuro: CN II-XII grossly intact, no asterixis ICD10 Worksheet Patient Problems: Problems Problem Status Diagnosed Acute hyperkalemia Acute Mrwgb-ya-xaziyhz renal failure Acute Encephalopathy acute Acute Influenza Acute Pneumonia Acute
[2016-06-18] MEDS ORDERED: WARFARIN SODIUM 7.5 MG TAB PO ONE (16:00)
[2016-06-18] MEDS: MELATONIN 3 MG TAB PO SCH (21:00)
[2016-06-19] MEDS: HEPARIN/DEXTROSE 500 ML IV SCH (01:15)
[2016-06-19] MEDS: PIPERACILLIN/TAZO 2.25 GM/DEX 50 ML IV SCH ×2 (05:10→12:10)
[2016-06-19] MEDS: IPRATROPIUM/ALBUTEROL 3 ML DEYVIAL IH SCH ×4 (05:27→21:29)
[2016-06-19 05:38] LABS: ALANINE AMINOTRANSFERASE 132 IU/L (21-72); ALBUMIN 3.2 g/dL (3.5-5.0); ALKALINE PHOSPHATASE 38 IU/L (38-126); ANION GAP 12 mEq/L (8-16); ASPARTATE AMINOTRANSFERASE 76 IU/L (17-59); BILIRUBIN,TOTAL 0.6 mg/dL (0.1-1.4); CALCIUM 6.2 mg/dL (8.5-10.4); CARBON DIOXIDE 27 mEq/l (22-31); CHLORIDE 106 mEq/L (97-110); CREATININE 3.5 mg/dL (0.7-1.3); GLOMERULAR FILTRATION RATE 17; GLUCOSE 91 mg/dL (70-100); POTASSIUM 4.7 mEq/L (3.5-5.2); SODIUM 145 mEq/L (134-144)
[2016-06-19 05:47] LABS: INR 1.96 (0.83-1.16); PROTIME(PATIENT) 22.4 SEC (12.0-15.0)
[2016-06-19] MEDS: predniSONE 20 MG TAB PO SCH (09:11)
[2016-06-19] MEDS: SENNOSIDES/DOCUSATE SODIUM TAB PO SCH ×2 (09:12→20:44)
[2016-06-19] MEDS ORDERED: WARFARIN SODIUM 2.5 MG TAB PO ONE ×2 (16:00→16:30)
--- NOTE | 2016-06-19 16:12 | HOSPPROG ---
Hospitalist Progress Note Assessment/Plan: Patient is an 89 yo M with hx of chronic respiratory failure and diastolic heart failure as well as ckd presenting with acute encephalopathy. # acute encephalopathy: * likely toxic metabolic encephalopathy in setting of acute infection * he is alert during my interview # LLL PNA: * patient at risk for aspiration as well as CAP, also positive for influenza. * dc Zosyn and initiate Levaquin QOD due to his renal disease # influenza: * received full treatment with Tamiflu # acute on chronic respiratory failure: * Multifactorial/ influenza, pna, possible PE (patient has extensive DVT's) # BLE DVT: fairly extensive,but relatively asymptomatic. * Continue heparin gtt and Coumadin. Cannot use LMWH given renal function. [place] [id number] sc heparin tid when above improved * INR is 1.9 * hopefully, will not have to bridge # ckd/ stage IV * close to his baseline * creatinine is 3.5/baseline is around 3.3 #. severe deconditioning * took 3 people to get him oob with use of andreina * PT and OT #. elevated LFT's * poss secondary to antibiotics # hyperkalemia: resolved # hyperglycemia: hgb a1c 6.6 /stress induced # dispo: pending. Will check an INR in the morning. Subjective: Fili has no complaints/ wants to go back to [facility]. Objective: Vital Signs Temp Pulse Resp BP Pulse Ox 36.3 C 66 20 121/89 H 92 06/19/16 08:00 06/19/16 12:01 06/19/16 12:01 06/19/16 08:00 06/19/16 12:01 Laboratory Results 06/16/16 04:30 06/19/16 05:10 06/18/16 06/19/16 06/20/16 05:59 05:59 05:59 Intake Total 940 600 Output Total 550 200 Balance 390 400 PT 22.4 SEC (12.0-15.0) H 06/19/16 05:10 INR 1.96 (0.83-1.16) H 06/19/16 05:10 - Physical Exam Constitutional: not in pain, chronically ill appearing, obese Eyes: PERRL Ears, Nose, Mouth, Throat: hearing normal Cardiovascular: regular rate and rhythym, other (distant heart sounds) Respiratory: expiratory wheeze (scattered/ very short of breath w any activity) Gastrointestinal: other (large and round) Skin: warm Musculoskeletal: generalized weakness Neurologic: other (alert to himself) Psychiatric: interacting appropriately, not anxious ICD10 Worksheet Patient Problems: Problems Problem Status Diagnosed Acute hyperkalemia Acute Scwxz-ke-xihbero renal failure Acute Encephalopathy acute Acute Influenza Acute Pneumonia Acute
[2016-06-19 17:16] VITALS: RESP 22
--- NOTE | 2016-06-19 18:58 | SOAPPROG ---
SOAP Progress Note Assessment/Plan: Assessment: 1. crf: stable at b/l. Has been seen in our office in past but would likely benefit from getting reestablished after d/c. 2. hyperK: resolved. Should avoid arb/acei for life. 3. hyperNa: stable at upper limit of normal. Should be able to manage this with po intake, will d/c d5w. 4. dvt: on anticoag Plan: 06/19/16 18:56 Subjective: Eating dinner vigorously. Multiple containers of soda, water on bedside table. Objective: Vital Signs Temp Pulse Resp BP Pulse Ox 37.1 C 60 22 H 121/89 H 94 06/19/16 16:00 06/19/16 17:12 06/19/16 17:12 06/19/16 16:00 06/19/16 17:12 Laboratory Results 06/16/16 04:30 06/19/16 05:10 06/18/16 06/19/16 06/20/16 05:59 05:59 05:59 Intake Total 940 600 Output Total 550 200 Balance 390 400 PT 22.4 SEC (12.0-15.0) H 06/19/16 05:10 INR 1.96 (0.83-1.16) H 06/19/16 05:10 Physical Exam - Physical Exam General Appearance: other (chronically-ill appearing) Respiratory: decreased breath sounds Cardiac/Chest: regular rate, rhythm Abdomen: other (obese) Extremities: pedal edema ICD10 Worksheet Patient Problems: Problems Problem Status Diagnosed Acute hyperkalemia Acute Mliwb-ph-cpjwmlj renal failure Acute Encephalopathy acute Acute Influenza Acute Pneumonia Acute
[2016-06-19] MEDS: MELATONIN 3 MG TAB PO SCH (20:44)
[2016-06-20 04:16] LABS: ABSOLUTE NRBC COUNT 0.05 10^3/uL (0-0.01); ADD DIFF? YES; ADD MORPH? NO; ADD SCAN? NO; ATYPICAL LYMPHOCYTE FLAG 20 (0-99); FRAGMENT RBC FLAG 0 (0-99); HEMATOCRIT 37.6 % (40.0-51.0); HEMOGLOBIN 11.5 g/dL (13.7-17.5); LEFT SHIFT FLG 20 (0-99); LIPEMIA HEMOLYSIS FLAG 80 (0-99); MEAN CELL HEMOGLOBIN 29.4 pg (27.9-34.1); MEAN CELL HEMOGLOBIN CONCENTR. 30.6 g/dL (32.4-36.7); MEAN CELL VOLUME 96.2 fL (81.5-99.8); NRBC-AUTO% 0.6 % (0.0-0.2); PLATELET CLUMPS FLAG 0 (0-99); PLATELET COUNT 138 10^3/uL (150-400); RED BLOOD CELL COUNT 3.91 10^6/uL (4.40-6.38); RED CELL DISTRIBUTION WIDTH 14.4 % (11.5-15.2)
[2016-06-20 04:22] LABS: INR 2.27 (0.83-1.16); PROTIME(PATIENT) 25.2 SEC (12.0-15.0)
[2016-06-20 04:29] LABS: ALBUMIN 3.3 g/dL (3.5-5.0); ANION GAP 11 mEq/L (8-16); CALCIUM 6.2 mg/dL (8.5-10.4); CARBON DIOXIDE 27 mEq/l (22-31); CHLORIDE 105 mEq/L (97-110); CREATININE 3.3 mg/dL (0.7-1.3); GLOMERULAR FILTRATION RATE 18; GLUCOSE 156 mg/dL (70-100); POTASSIUM 4.6 mEq/L (3.5-5.2); SODIUM 143 mEq/L (134-144)
[2016-06-20 04:41] LABS: PLATELET ESTIMATE ADEQUATE (ADEQ)
[2016-06-20] MEDS: IPRATROPIUM/ALBUTEROL 3 ML DEYVIAL IH SCH ×3 (05:01→16:20)
[2016-06-20] MEDS: predniSONE 20 MG TAB PO SCH (08:03)
[2016-06-20] MEDS: SENNOSIDES/DOCUSATE SODIUM TAB PO SCH (08:25)
--- NOTE | 2016-06-20 11:20 | HOSPPROG ---
Hospitalist Progress Note Assessment/Plan: Patient is an 89 yo M with hx of chronic respiratory failure and diastolic heart failure as well as ckd presenting with acute encephalopathy. # acute encephalopathy: * likely toxic metabolic encephalopathy in setting of acute infection * he is alert and oriented today # LLL PNA: * patient at risk for aspiration as well as CAP, also positive for influenza. * dc Zosyn and initiate Levaquin QOD due to his renal disease # influenza: * received full treatment with Tamiflu # acute on chronic respiratory failure: * Multifactorial/ influenza, pna, possible PE (patient has extensive DVT's) * at his baseline # BLE DVT: fairly extensive,but relatively asymptomatic. * INR is 2.27 * dc heparin gtt # ckd/ stage IV * at his baseline 3.3 #. severe deconditioning * took 3 people to get him oob with use of andreina * PT and OT #. elevated LFT's * poss secondary to antibiotics # hyperkalemia: resolved # hyperglycemia: hgb a1c 6.6 /stress induced # dispo:dc today if BM can take him back Subjective: Fili said he is feeling well. Objective: Vital Signs Temp Pulse Resp BP Pulse Ox 36.7 C 64 22 H 130/69 H 96 06/20/16 08:00 06/20/16 08:00 06/20/16 08:00 06/20/16 08:00 06/20/16 08:00 Microbiology 06/14/16 20:20 Blood Culture - Final Blood Laboratory Results 06/20/16 04:00 06/20/16 04:00 06/19/16 06/20/16 06/21/16 05:59 05:59 05:59 Intake Total 600 931 Output Total 200 Balance 400 931 PT 25.2 SEC (12.0-15.0) H 06/20/16 04:00 INR 2.27 (0.83-1.16) H 06/20/16 04:00 - Physical Exam Constitutional: not in pain, chronically ill appearing, obese Eyes: PERRL Ears, Nose, Mouth, Throat: hearing normal Cardiovascular: regular rate and rhythym, other (distant heart sounds) Respiratory: no respiratory distress, reduced air movement, expiratory wheeze ( few scattered, but much improved since yesterday) Gastrointestinal: normoactive bowel sounds, other (large and round) Skin: warm Musculoskeletal: generalized weakness Neurologic: AAOx3 Psychiatric: interacting appropriately, not anxious, not encephalopathic ICD10 Worksheet Patient Problems: Problems Problem Status Diagnosed Acute hyperkalemia Acute Rkqsn-ic-dnskokw renal failure Acute Encephalopathy acute Acute Influenza Acute Pneumonia Acute
--- NOTE | 2016-06-20 11:45 | PDIAF ---
- Diagnosis Diagnosis: encephalopathy, influenza, bilat LE DVT Code Status: Do Not Resuscitate - Medication Management Discharge Medications: Medications to Continue on Transfer Acetaminophen [Tylenol 325mg (*)] 325 - 650 mg PO Q6 PRN #0 tab 07/19/14 [Last Taken Unknown] Calcium Carbonate [Tums 500MG (*)] 500 mg PO QID PRN 01/20/15 [Last Taken Unknown] Folic Acid [Folic Acid 1 MG (*)] 800 mcg PO DAILY 01/20/15 [Last Taken 01/20/15] Polyethylene Glycol 3350 [Miralax 17 gm (*)] 17 gm PO DAILY 01/20/15 [Last Taken 01/20/15] Sennosides/Docusate Sodium [Senokot-S] 1 each PO BID PRN 01/20/15 [Last Taken Unknown] Acetaminophen [Tylenol Supp 325mg (*)] 650 mg HI Q6HRS PRN 06/14/16 [Last Taken Unknown] Clobetasol 0.05% [Temovate Cream] 1 harshal TP MWF PRN 06/14/16 [Last Taken Unknown] Furosemide [Lasix 20 MG (*)] 20 mg PO DAILY 06/14/16 [Last Taken Unknown] Herbals/Supplements -Info Only 1 ea PO DAILY 06/14/16 [Last Taken Unknown] Methyl Salicylate/Menthol [Bengay (*)] 1 harshal TP Q6HRS PRN 06/14/16 [Last Taken Unknown] Ondansetron Odt [Zofran Odt 4 mg (*)] 8 mg PO Q8HRS PRN 06/14/16 [Last Taken Unknown] Tamsulosin HCl [Flomax 0.4 MG (*)] 0.4 mg PO DAILY 06/14/16 [Last Taken Unknown] amLODIPine BESYLATE [Norvasc 5 mg (*)] 5 mg PO DAILY 06/14/16 [Last Taken Unknown] guaiFENesin [Mucinex 600 MG (*)] 600 mg PO BID 06/14/16 [Last Taken Unknown] Acetaminophen [Tylenol Rectal] 650 mg HI Q4HRS PRN #0 supp 06/20/16 [Last Taken Unknown] Albuterol [Proventil Neb] 3 ml IH Q2HRS PRN #0 deyvial 06/20/16 [Last Taken Unknown] Ipratropium/Albuterol [Duoneb (*)] 3 ml IH QID #0 deyvial 06/20/16 [Last Taken Unknown] Melatonin [Melatonin 3 MG (*)] 3 mg PO HS #0 tab 06/20/16 [Last Taken Unknown] Polyethylene Glycol 3350 [Miralax 17 gm (*)] 17 gm PO DAILY PRN #0 pkt 06/20/16 [Last Taken Unknown] Sennosides/Docusate Sodium [Senokot-S] 1 - 2 tab PO BID #0 tab 06/20/16 [Last Taken Unknown] Warfarin Sodium [Coumadin 3MG (*)] 3 mg PO DAILY16 #0 tab 06/20/16 [Last Taken Unknown] levOFLOXACIN [levAQUIN (*)] 750 mg PO Q2D@1000 #2 tab 06/20/16 [Last Taken Unknown] predniSONE 20 mg PO DAILY #0 tablet 06/20/16 [Last Taken Unknown] Discharge Medications: Refer to the Discharge Home Medication list for PRN reason. - Orders Oxygen: 4 liters Diet Recommendation: other (renal diet/ low K) Diet Texture: Regular Texture Diet, Thin Liquids Additional: Take levaquin QOD for 2 more doses. Wean Prednisone off/ take 20 mg x 3 days, then 10 mg x 3 days, then stop. Patient should never be on ARB or ACEI. He needs to make an appt and see nephrology in 1-2 weeks. OXY has been completely stopped due to confusion. - Labs/Radiology BMP Date: 06/22/16 (every 3 days till stable) LFT Date: 06/22/16 PT/INR Date: 06/21/16 (daily till stable) Imaging Orders: need repeat chest xray in 6 weeks to be sure resolution of pna - Follow Up Care Current Providers and Referrals: CORRIE HUDSON [Primary Care Provider] -
--- NOTE | 2016-06-20 13:58 | PDIAF ---
- Diagnosis Diagnosis: encephalopathy, influenza, bilat LE DVT Code Status: Do Not Resuscitate - Medication Management Discharge Medications: Medications to Continue on Transfer Acetaminophen [Tylenol 325mg (*)] 325 - 650 mg PO Q6 PRN #0 tab 07/19/14 [Last Taken Unknown] Calcium Carbonate [Tums 500MG (*)] 500 mg PO QID PRN 01/20/15 [Last Taken Unknown] Folic Acid [Folic Acid 1 MG (*)] 800 mcg PO DAILY 01/20/15 [Last Taken 01/20/15] Polyethylene Glycol 3350 [Miralax 17 gm (*)] 17 gm PO DAILY 01/20/15 [Last Taken 01/20/15] Sennosides/Docusate Sodium [Senokot-S] 1 each PO BID PRN 01/20/15 [Last Taken Unknown] Acetaminophen [Tylenol Supp 325mg (*)] 650 mg MS Q6HRS PRN 06/14/16 [Last Taken Unknown] Clobetasol 0.05% [Temovate Cream] 1 harshal TP MWF PRN 06/14/16 [Last Taken Unknown] Furosemide [Lasix 20 MG (*)] 20 mg PO DAILY 06/14/16 [Last Taken Unknown] Herbals/Supplements -Info Only 1 ea PO DAILY 06/14/16 [Last Taken Unknown] Methyl Salicylate/Menthol [Bengay (*)] 1 harshal TP Q6HRS PRN 06/14/16 [Last Taken Unknown] Ondansetron Odt [Zofran Odt 4 mg (*)] 8 mg PO Q8HRS PRN 06/14/16 [Last Taken Unknown] Tamsulosin HCl [Flomax 0.4 MG (*)] 0.4 mg PO DAILY 06/14/16 [Last Taken Unknown] amLODIPine BESYLATE [Norvasc 5 mg (*)] 5 mg PO DAILY 06/14/16 [Last Taken Unknown] guaiFENesin [Mucinex 600 MG (*)] 600 mg PO BID 06/14/16 [Last Taken Unknown] Acetaminophen [Tylenol Rectal] 650 mg MS Q4HRS PRN #0 supp 06/20/16 [Last Taken Unknown] Albuterol [Proventil Neb] 3 ml IH Q2HRS PRN #0 deyvial 06/20/16 [Last Taken Unknown] Ipratropium/Albuterol [Duoneb (*)] 3 ml IH QID #0 deyvial 06/20/16 [Last Taken Unknown] Melatonin [Melatonin 3 MG (*)] 3 mg PO HS #0 tab 06/20/16 [Last Taken Unknown] Polyethylene Glycol 3350 [Miralax 17 gm (*)] 17 gm PO DAILY PRN #0 pkt 06/20/16 [Last Taken Unknown] Sennosides/Docusate Sodium [Senokot-S] 1 - 2 tab PO BID #0 tab 06/20/16 [Last Taken Unknown] Warfarin Sodium [Coumadin 3MG (*)] 3 mg PO DAILY16 #0 tab 06/20/16 [Last Taken Unknown] levOFLOXACIN [levAQUIN (*)] 750 mg PO Q2D@1000 #2 tab 06/20/16 [Last Taken Unknown] predniSONE 20 mg PO DAILY #0 tablet 06/20/16 [Last Taken Unknown] Discharge Medications: Refer to the Discharge Home Medication list for PRN reason. - Orders Services needed: Physical Therapy, Occupational Therapy Oxygen: 4 liters Diet Recommendation: other (renal diet/ low K) Diet Texture: Regular Texture Diet, Thin Liquids Additional: Take levaquin QOD for 2 more doses. Wean Prednisone off/ take 20 mg x 3 days, then 10 mg x 3 days, then stop. Patient should never be on ARB or ACEI. He needs to make an appt and see nephrology in 1-2 weeks. OXY has been completely stopped due to confusion. - Labs/Radiology BMP Date: 06/22/16 (every 3 days till stable) LFT Date: 06/22/16 PT/INR Date: 06/21/16 (daily till stable) Imaging Orders: need repeat chest xray in 6 weeks to be sure resolution of pna - Follow Up Care Current Providers and Referrals: CORRIE HUDSON [Primary Care Provider] -
--- NOTE | 2016-06-20 14:36 | GDS ---
[f rep st] DISCHARGE SUMMARY DISCHARGE DIAGNOSES: 1. Acute encephalopathy. 2. Left lower lobe pneumonia. 3. Influenza. 4. Acute on chronic respiratory failure. 5. Extensive bilateral lower extremity deep vein thromboses. 6. Chronic kidney disease, stage IV. 7. Severe deconditioning. 8. Elevated liver function tests. 9. Hyperkalemia. 10. Hyperglycemia. CONSULTATIONS: Consultation during his stay: 1. Dr. Jenn Panda with nephrology services. 2. Dr. Alexis Morris with care nurse rn services. BRIEF HISTORY: Patient is an 89-year-old male with a history of chronic respiratory failure, diastolic heart failure and chronic kidney disease. He presented to the emergency room from a nursing home facility with altered mental status. He was seen and evaluated and noted to have respiratory failure. In addition, he was checked for influenza which was positive. During his stay he had an ultrasound which showed extensive clot. He was treated with a heparin drip and now is on Coumadin. Also of note, during his stay narcotics were stopped. Today he is alert and oriented. He appears to be close to his baseline. He will need further follow up with Nephrology in the outpatient setting. HOSPITAL COURSE: 1. Acute encephalopathy: This is multifactorial. He likely had toxic metabolic encephalopathy in the setting of acute infection. He also was on narcotics. He has cleared nicely after getting treatment for his influenza and for the pneumonia. His narcotics have been completely discontinued. 2. Left lower lobe pneumonia. He was treated with Zosyn. He will take Levaquin every other day. 3. Influenza. Received full treatment. 4. Acute on chronic respiratory failure. He is at his baseline. 5. Bilateral extremity DVTs. This was fairly extensive but he is asymptomatic. INR is 2.27. 6. Chronic kidney disease, stage IV. He is at his baseline at 3.3. 7. Severe deconditioning. It took 3 people yesterday to get him out of bed with the use of a Garrick. Continue PT and OT. 8. Elevated LFTs. This is most likely secondary to antibiotics. 9. Hyperkalemia. Resolved. 10. Hyperglycemia. This was stress-induced. PENDING LABS AND TESTS: None. CONDITION AT DISCHARGE: Stable. Blood pressure is 130/69, pulse 64, respiratory rate is 22, temperature 36.7 Celsius, O2 sats on 4 L is 96%. MEDICATIONS AT DISCHARGE: Please see the EMR. DISCHARGE INSTRUCTIONS: 1. Do not resume his ARB or start him on any GEE inhibitor due to his renal failure. 2. Follow up with Nephrology. 3. Recommend that he not be restarted on any narcotics. Greater than 30 minutes discharging and coordinating care. Please send a copy this dictation to Dr. Panda and to Dr. Velasco. /[id number]/MODL [id number]
[2016-06-20] MEDS ORDERED: WARFARIN SODIUM 3 MG TAB PO ONE (16:00)
[2016-06-20 17:03] VITALS: BP 118/86; PULSE 86; TEMP 98.9; O2SAT 95
== END 2016-06-20 18:16 | DRG 193 ==
LOC: EDUNIT# → F2N 23:30 → F3E 06-16 16:03
PROVIDERS: ADMIT Hospitalist; ATTEND Internal Medicine
PROC: 02HV33Z Insertion of Infusion Device into Superior Vena Cava, Percutaneous Approach (ICD-10-PCS; principal; 2016-06-14)
DX: J10.00 Influenza due to other identified influenza virus with unspecified type of pneumonia (principal); J18.9 Pneumonia, unspecified organism; G93.40 Encephalopathy, unspecified; J96.21 Acute and chronic respiratory failure with hypoxia; I82.403 Acute embolism and thrombosis of unspecified deep veins of lower extremity, bilateral; I13.0 Hypertensive heart and chronic kidney disease with heart failure and stage 1 through stage 4 chronic kidney disease, or unspecified chronic kidney disease; I50.32 Chronic diastolic (congestive) heart failure; N17.9 Acute kidney failure, unspecified; N18.4 Chronic kidney disease, stage 4 (severe); E87.5 Hyperkalemia; E87.0 Hyperosmolality and hypernatremia; Z99.81 Dependence on supplemental oxygen
CPT/HCPCS: 85520-90; 92610-GN; 97162-GP; 97165-GO; 97530-GP; G0008; G0009; G8978-GP-CK; G8979-GP-CJ; G8987-GO-CL; G8988-GO-CK; G8996-GN-CH; G8997-GN-CH; G8998-GN-CH; J0610; J1644; J1815; J1956; J2543